=== PATIENT | female | born 1950 | race Caucasian/White ===

== ENCOUNTER → 2019-12-17 12:27 | Outpatient (CLI) | payer MEDICARE, OTHER, SELFPAY ==
[2019-12-17 12:50] LABS: Basophils % 0.4 % (0.1-2.0); Eosinophils # 0.1 K/mm3 (0.0-0.4); Eosinophils % 1.2 % (0.1-12.0); Hematocrit 41.2 % (37.0-47.0); Hemoglobin 13.7 g/dL (12.2-16.2); Lymphocytes # 1.9 K/mm3 (0.7-4.5); Lymphocytes % 24.8 % (10-50); Mean Corpuscular HGB Conc 33.2 g/dL (31.8-35.4); Mean Corpuscular Volume 99.4 fl (81-99); Mean Platelet Volume 8.5 fl (7.4-10.4); Monocytes # 0.4 K/mm3 (0.1-1.0); Monocytes % 5.1 % (1.7-9.3); Neutrophils # 5.3 K/mm3 (1.8-7.8); Neutrophils % 68.5 % (37.0-80.0); Platelet Count 199 K/mm3 (142-424); Red Blood Count 4.15 M/mm3 (4.20-5.40); Red Cell Distribution Width 12.6 % (11.5-17.5); White Blood Count 7.8 K/mm3 (4.8-10.8)
[2019-12-17 12:56] LABS: Alanine Aminotransferase 25 U/L (12-78); Albumin Level 4.8 g/dl (3.5-5.0); Albumin/Globulin Ratio 1.7 (1.1-1.8); Alkaline Phosphatase 60 U/L (38-126); Anion Gap 13.1 mEq/L (5-15); Aspartate Amino Transferase 41 U/L (14-36); Bilirubin,Total 0.7 mg/dl (0.2-1.3); Blood Urea Nitrogen 18 mg/dl (7-17); Calcium 10.1 mg/dl (8.4-10.2); Carbon Dioxide 31 mmol/L (22.0-30.0); Chloride 101 mmol/L (98-107); Chol/HDL Ratio 2.3 (1-3.5); Cholesterol 159 mg/dl (140-200); Estimated Glomerular Filt Rate 71 ml/min (>60); GFR (African American) 86 ML/MIN (>60); Globulin 2.9 g/dL (1.3-3.2); Glucose 115 mg/dl (74-100); HDL Cholesterol 68 mg/dl (40-60); Potassium 4.1 mmoL/L (3.5-5.1); Sodium 141 mmol/L (136-145); Total Protein,Serum 7.7 g/dl (6.3-8.2); Triglycerides 113 mg/dl (30-150); VLDL Cholesterol 23 mg/dL (0-40)
[2019-12-17 13:06] LABS: Direct LDL Cholesterol 79.18 mg/dL (100-129)
[2019-12-17 13:13] LABS: T4 (Thyroxine) 10.3 ug/dl (5.53-11.0)
[2019-12-17 13:26] LABS: Thyroid Stimulating Hormone 1.51 uIU/mL (0.465-4.68)
[2019-12-27 18:47] LABS: 1,25 Dihydroxy Vitamin D 38 pg/mL (.); 1,25-Dihydroxy, Vitamin D-2 11 pg/mL (.); 1,25-Dihydroxy, Vitamin D-3 27 pg/mL (.)
== END ==
PROVIDERS: Visit Provider Nurse Practitioner Family
DX: I10 Essential (primary) hypertension (principal); R53.83 Other fatigue; E11.9 Type 2 diabetes mellitus without complications
CPT/HCPCS: 80053; 80061; 82652; 83036; 84436; 84443; 85025

== ENCOUNTER → 2020-03-04 17:51 | Outpatient (CLI) | payer MEDICARE, OTHER, SELFPAY ==
[2020-03-04 19:33] LABS: Hemoglobin A1C 5.7 % (4.0-6.0)
== END ==
PROVIDERS: Visit Provider Nurse Practitioner Family
DX: R73.09 Other abnormal glucose (principal)
CPT/HCPCS: 83036

== ENCOUNTER → 2020-06-08 14:16 | Outpatient (CLI) | payer MEDICARE, OTHER, SELFPAY ==
[2020-06-08 14:27] LABS: Basophils % 0.5 % (0.1-2.0); Eosinophils # 0.1 K/mm3 (0.0-0.4); Eosinophils % 1.1 % (0.1-12.0); Hematocrit 40.2 % (37.0-47.0); Hemoglobin 12.6 g/dL (12.2-16.2); Lymphocytes # 2.1 K/mm3 (0.7-4.5); Lymphocytes % 32.5 % (10-50); Mean Corpuscular HGB Conc 31.5 g/dL (31.8-35.4); Mean Corpuscular Hemoglobin 30.6 pg (27.0-31.2); Mean Corpuscular Volume 97.3 fl (81-99); Mean Platelet Volume 8.6 fl (7.4-10.4); Monocytes # 0.4 K/mm3 (0.1-1.0); Monocytes % 6.2 % (1.7-9.3); Neutrophils # 3.8 K/mm3 (1.8-7.8); Neutrophils % 59.7 % (37.0-80.0); Platelet Count 182 K/mm3 (142-424); Red Blood Count 4.13 M/mm3 (4.20-5.40); Red Cell Distribution Width 12.8 % (11.5-17.5); White Blood Count 6.4 K/mm3 (4.8-10.8)
[2020-06-08 14:30] LABS: Alanine Aminotransferase 19 U/L (12-78); Albumin Level 4.7 g/dl (3.5-5.0); Albumin/Globulin Ratio 1.7 (1.1-1.8); Alkaline Phosphatase 54 U/L (38-126); Anion Gap 11.3 mEq/L (5-15); Aspartate Amino Transferase 35 U/L (14-36); Bilirubin,Total 0.7 mg/dl (0.2-1.3); Blood Urea Nitrogen 24 mg/dl (7-17); Calcium 10.1 mg/dl (8.4-10.2); Carbon Dioxide 31 mmol/L (22.0-30.0); Chloride 104 mmol/L (98-107); Chol/HDL Ratio 2.5 (1-3.5); Cholesterol 158 mg/dl (140-200); Estimated Glomerular Filt Rate 62 ml/min (>60); GFR (African American) 75 ML/MIN (>60); Globulin 2.8 g/dL (1.3-3.2); Glucose 105 mg/dl (74-100); HDL Cholesterol 64 mg/dl (40-60); Potassium 4.3 mmoL/L (3.5-5.1); Sodium 142 mmol/L (136-145); Total Protein,Serum 7.5 g/dl (6.3-8.2); Triglycerides 103 mg/dl (30-150); VLDL Cholesterol 21 mg/dL (0-40)
[2020-06-08 14:42] LABS: Direct LDL Cholesterol 73.38 mg/dL (100-129)
[2020-06-08 14:47] LABS: T4 (Thyroxine) 11.3 ug/dl (5.53-11.0)
[2020-06-08 14:48] LABS: 25-OH Vitamin D, Total 30.1 ng/mL (30-100)
[2020-06-08 15:01] LABS: Thyroid Stimulating Hormone 1.84 uIU/mL (0.465-4.68)
[2020-06-08 15:40] LABS: Hemoglobin A1C 5.7 % (4.0-6.0)
== END ==
PROVIDERS: Visit Provider Nurse Practitioner Family
DX: R53.83 Other fatigue (principal); I10 Essential (primary) hypertension; R73.03 Prediabetes; E55.9 Vitamin D deficiency, unspecified
CPT/HCPCS: 80053; 80061; 82306; 83036; 84436; 84443; 85025

== ENCOUNTER → 2021-03-01 17:21 | Outpatient (CLI) | payer MEDICARE, OTHER, SELFPAY ==
[2021-03-01 17:38] LABS: Alanine Aminotransferase 19 U/L (12-78); Albumin Level 4.7 g/dl (3.5-5.0); Albumin/Globulin Ratio 1.7 (1.1-1.8); Alkaline Phosphatase 55 U/L (38-126); Anion Gap 15.3 mEq/L (5-15); Aspartate Amino Transferase 33 U/L (14-36); Bilirubin,Total 0.6 mg/dl (0.2-1.3); Blood Urea Nitrogen 19 mg/dl (7-17); Calcium 10.4 mg/dl (8.4-10.2); Carbon Dioxide 28 mmol/L (22.0-30.0); Chloride 103 mmol/L (98-107); Chol/HDL Ratio 3.2 (1-3.5); Cholesterol 179 mg/dl (140-200); Estimated Glomerular Filt Rate 71 ml/min (>60); GFR (African American) 85 ML/MIN (>60); Globulin 2.7 g/dL (1.3-3.2); Glucose 91 mg/dl (74-100); HDL Cholesterol 56 mg/dl (40-60); Potassium 4.3 mmoL/L (3.5-5.1); Sodium 142 mmol/L (136-145); Total Protein,Serum 7.4 g/dl (6.3-8.2); Triglycerides 144 mg/dl (30-150); VLDL Cholesterol 29 mg/dL (0-40)
[2021-03-01 17:50] LABS: Direct LDL Cholesterol 99.37 mg/dL (100-129)
[2021-03-01 17:55] LABS: 25-OH Vitamin D, Total 43.5 ng/mL (30-100)
[2021-03-01 17:56] LABS: T4 (Thyroxine) 10.9 ug/dl (5.53-11.0)
[2021-03-01 18:09] LABS: Thyroid Stimulating Hormone 1.34 uIU/mL (0.465-4.68)
== END ==
PROVIDERS: Visit Provider Nurse Practitioner Family
DX: I10 Essential (primary) hypertension (principal); R73.03 Prediabetes; E55.9 Vitamin D deficiency, unspecified
CPT/HCPCS: 80053; 80061; 82306; 84436; 84443

== ENCOUNTER → 2021-08-28 18:48 | Outpatient (CLI) | payer MEDICARE, OTHER, SELFPAY ==
[2021-08-28 14:30] LABS: Alanine Aminotransferase 23 U/L (12-78); Albumin Level 4.5 g/dl (3.5-5.0); Albumin/Globulin Ratio 1.9 (1.1-1.8); Alkaline Phosphatase 53 U/L (38-126); Anion Gap 13.2 mEq/L (5-15); Aspartate Amino Transferase 33 U/L (14-36); Bilirubin,Total 0.5 mg/dl (0.2-1.3); Blood Urea Nitrogen 18 mg/dl (7-17); Carbon Dioxide 28 mmol/L (22.0-30.0); Chloride 103 mmol/L (98-107); Chol/HDL Ratio 2.8 (1-3.5); Cholesterol 149 mg/dl (140-200); Estimated Glomerular Filt Rate 70 ml/min (>60); GFR (African American) 85 ML/MIN (>60); Globulin 2.4 g/dL (1.3-3.2); Glucose 100 mg/dl (74-100); HDL Cholesterol 53 mg/dl (40-60); Potassium 4.2 mmoL/L (3.5-5.1); Sodium 140 mmol/L (136-145); Total Protein,Serum 6.9 g/dl (6.3-8.2); Triglycerides 156 mg/dl (30-150); VLDL Cholesterol 31 mg/dL (0-40)
[2021-08-28 14:36] LABS: Basophils # 0.1 K/mm3 (0-0.2); Eosinophils # 0.1 K/mm3 (0.0-0.4); Eosinophils % 1.5 % (0.1-12.0); Hematocrit 40.5 % (37.0-47.0); Hemoglobin 13.2 g/dL (12.2-16.2); Lymphocytes # 1.8 K/mm3 (0.7-4.5); Lymphocytes % 27.9 % (10-50); Mean Corpuscular HGB Conc 32.6 g/dL (31.8-35.4); Mean Corpuscular Hemoglobin 32.2 pg (27.0-31.2); Mean Corpuscular Volume 98.7 fl (81-99); Mean Platelet Volume 9.2 fl (7.4-10.4); Monocytes # 0.4 K/mm3 (0.1-1.0); Monocytes % 5.6 % (1.7-9.3); Platelet Count 196 K/mm3 (142-424); Red Blood Count 4.11 M/mm3 (4.20-5.40); Red Cell Distribution Width 12.7 % (11.5-17.5); White Blood Count 6.3 K/mm3 (4.8-10.8)
[2021-08-28 14:42] LABS: Direct LDL Cholesterol 64.44 mg/dL (100-129)
[2021-08-28 14:47] LABS: T4 (Thyroxine) 11.2 ug/dl (5.53-11.0)
[2021-08-28 14:49] LABS: 25-OH Vitamin D, Total 35.7 ng/mL (30-100)
[2021-08-28 15:01] LABS: Thyroid Stimulating Hormone 1.48 uIU/mL (0.465-4.68)
== END ==
PROVIDERS: Visit Provider Nurse Practitioner Family
DX: Z09 Encounter for follow-up examination after completed treatment for conditions other than malignant neoplasm (principal); I10 Essential (primary) hypertension; M25.561 Pain in right knee; M25.562 Pain in left knee
CPT/HCPCS: 80053; 80061; 82306; 84436; 84443; 85025

== ENCOUNTER → 2023-01-01 14:10 | Outpatient (CLI) | payer MEDICARE, OTHER, SELFPAY | PROVIDERS: PCP Student in an Organized Health Care Education/Training Program; Visit Provider Student in an Organized Health Care Education/Training Program | DX: N39.0 Urinary tract infection, site not specified (principal); R35.0 Frequency of micturition | CPT/HCPCS: 87086 ==

== ENCOUNTER → 2023-01-31 01:10 | Outpatient (CLI) | payer MEDICARE, OTHER, SELFPAY ==
[2023-01-31 20:29] LABS: Basophils # 0.1 K/mm3 (0-0.2); Basophils % 0.6 % (0.1-2.0); Eosinophils # 0.1 K/mm3 (0.0-0.4); Eosinophils % 1.5 % (0.1-12.0); Hematocrit 40.1 % (37.0-47.0); Hemoglobin 12.4 g/dL (12.2-16.2); Lymphocytes % 27.4 % (10-50); Mean Corpuscular HGB Conc 30.9 g/dL (31.8-35.4); Mean Corpuscular Hemoglobin 29.5 pg (27.0-31.2); Mean Corpuscular Volume 95.6 fl (81-99); Mean Platelet Volume 9.2 fl (7.4-10.4); Monocytes # 0.5 K/mm3 (0.1-1.0); Monocytes % 6.6 % (1.7-9.3); Neutrophils # 4.7 K/mm3 (1.8-7.8); Neutrophils % 63.9 % (37.0-80.0); Platelet Count 216 K/mm3 (142-424); Red Cell Distribution Width 13.3 % (11.5-17.5); White Blood Count 7.4 K/mm3 (4.8-10.8)
[2023-01-31 20:48] LABS: Alanine Aminotransferase 19 U/L (12-78); Albumin Level 4.1 g/dl (3.5-5.0); Albumin/Globulin Ratio 1.5 (1.1-1.8); Alkaline Phosphatase 61 U/L (38-126); Anion Gap 10.4 mEq/L (5-15); Aspartate Amino Transferase 28 U/L (14-36); Bilirubin,Total 0.4 mg/dl (0.2-1.3); Blood Urea Nitrogen 16 mg/dl (7-17); Calcium 9.1 mg/dl (8.4-10.2); Carbon Dioxide 29 mmol/L (22.0-30.0); Chloride 107 mmol/L (98-107); Cholesterol 146 mg/dl (140-200); Estimated Glomerular Filt Rate 70 ml/min (>60); GFR (African American) 85 ML/MIN (>60); Globulin 2.8 g/dL (1.3-3.2); Glucose 100 mg/dl (74-100); HDL Cholesterol 49 mg/dl (40-60); Potassium 4.4 mmoL/L (3.5-5.1); Sodium 142 mmol/L (136-145); Total Protein,Serum 6.9 g/dl (6.3-8.2); Triglycerides 150 mg/dl (30-150); VLDL Cholesterol 30 mg/dL (0-40)
[2023-01-31 21:09] LABS: 25-OH Vitamin D, Total 32.4 ng/mL (30-100)
[2023-01-31 21:39] LABS: Hemoglobin A1C 5.7 % (4.0-6.0)
== END ==
PROVIDERS: PCP Student in an Organized Health Care Education/Training Program; Visit Provider Student in an Organized Health Care Education/Training Program
DX: R31.9 Hematuria, unspecified (principal); E55.9 Vitamin D deficiency, unspecified; I10 Essential (primary) hypertension; R73.03 Prediabetes
CPT/HCPCS: 80053; 80061; 82306; 83036; 84443; 85025; 87086

== ENCOUNTER → 2023-04-01 23:00 | Outpatient (CLI) | payer MEDICARE, OTHER, SELFPAY | PROVIDERS: PCP Student in an Organized Health Care Education/Training Program; Visit Provider Student in an Organized Health Care Education/Training Program | DX: R05.9 Cough, unspecified (principal) | CPT/HCPCS: 87635 ==

== ENCOUNTER 2023-10-01 13:37 | Outpatient (CLI) | payer MEDICARE, OTHER, SELFPAY ==
[2023-10-01 21:34] LABS: Alanine Aminotransferase 25 U/L (12-78); Albumin Level 4.4 g/dl (3.5-5.0); Albumin/Globulin Ratio 1.5 (1.1-1.8); Alkaline Phosphatase 64 U/L (38-126); Anion Gap 14.3 mEq/L (5-15); Aspartate Amino Transferase 42 U/L (14-36); Bilirubin,Total 0.7 mg/dl (0.2-1.3); Blood Urea Nitrogen 18 mg/dl (7-17); Calcium 9.9 mg/dl (8.4-10.2); Carbon Dioxide 27 mmol/L (22.0-30.0); Chloride 103 mmol/L (98-107); Chol/HDL Ratio 2.6 (1-3.5); Cholesterol 153 mg/dl (140-200); Estimated Glomerular Filt Rate 61 ml/min (>60); GFR (African American) 74 ML/MIN (>60); Globulin 2.9 g/dL (1.3-3.2); Glucose 100 mg/dl (74-100); HDL Cholesterol 60 mg/dl (40-60); Potassium 4.3 mmoL/L (3.5-5.1); Sodium 140 mmol/L (136-145); Total Protein,Serum 7.3 g/dl (6.3-8.2); Triglycerides 105 mg/dl (30-150); VLDL Cholesterol 21 mg/dL (0-40)
[2023-10-01 21:36] LABS: Basophils % 0.7 % (0.1-2.0); Eosinophils # 0.1 K/mm3 (0.0-0.4); Eosinophils % 1.6 % (0.1-12.0); Hematocrit 38.6 % (37.0-47.0); Hemoglobin 12.3 g/dL (12.2-16.2); Lymphocytes # 1.6 K/mm3 (0.7-4.5); Lymphocytes % 28.5 % (10-50); Mean Corpuscular HGB Conc 31.8 g/dL (31.8-35.4); Mean Corpuscular Hemoglobin 30.6 pg (27.0-31.2); Mean Corpuscular Volume 96.3 fl (81-99); Mean Platelet Volume 9.4 fl (7.4-10.4); Monocytes # 0.4 K/mm3 (0.1-1.0); Monocytes % 6.8 % (1.7-9.3); Neutrophils # 3.5 K/mm3 (1.8-7.8); Neutrophils % 62.2 % (37.0-80.0); Platelet Count 229 K/mm3 (142-424); Red Cell Distribution Width 14.7 % (11.5-17.5); White Blood Count 5.7 K/mm3 (4.8-10.8)
[2023-10-01 21:45] LABS: Direct LDL Cholesterol 77.81 mg/dL (100-129)
[2023-10-01 22:05] LABS: Thyroid Stimulating Hormone 1.45 uIU/mL (0.465-4.68)
[2023-10-01 22:13] LABS: Hemoglobin A1C 5.8 % (4.0-6.0)
[2023-10-01 22:41] LABS: Vitamin B12 374 pg/mL (239-931)
[2023-10-01 23:01] LABS: Iron 96 ug/dL (37-170)
[2023-10-01 23:11] LABS: Total Iron Binding Capacity 269 ug/dL (265-497)
[2023-10-01 23:38] LABS: Ferritin 238 ng/ml (11.1-264)
== END 2023-10-01 23:59 | disposition home or self-care (01) ==
LOC: LAB.DROPOF 10-02 14:01
PROVIDERS: PCP Student in an Organized Health Care Education/Training Program; Visit Provider Student in an Organized Health Care Education/Training Program
DX: D64.9 Anemia, unspecified (principal); I10 Essential (primary) hypertension; R73.03 Prediabetes; R53.83 Other fatigue
CPT/HCPCS: 80053; 80061; 82607; 82728; 82746; 83036; 83540; 83550; 84443; 85025

== ENCOUNTER 2025-04-15 12:01 | Outpatient (CLI) | payer MEDICARE, OTHER, SELFPAY ==
--- OUTSIDE RECORDS SUMMARY | 2025-03-31 12:35 | XMS_ITS | Encounter Summary ---
Author Organization [facility] Address [address] [place] [id number] Care Team Providers Care Transitions Manager Name Role Phone Ke Mejia MD Primary Care Provider [phone] Reason for Referral * MRI/CAT/PET Scan (Routine) - Closed Specialty Diagnoses / Procedures Referred By Juan storm Referred To Contact Radiology Diagnoses Malignant neoplasm of upper lobe of left lung Procedures CT Abdomen Pelvis With Contrast Emilee Pedro MD [address] [place] [address] Phone: tel: fax: Referral ID Status Reason Start Date Expiration Date Visits Re quested Visits Authorized Closed 12/09/2024 03/10/2026 1 1 * MRI/CAT/PET Scan (Routine) - Closed Specialty Diagnoses / Procedures Referred By Juan storm Referred To Contact Radiology Diagnoses Malignant neoplasm of upper lobe of left lung Procedures CT Chest With Contrast Emilee Pedro MD [address] [place] [address] Phone: tel: fax: Referral ID Status Reason Start Date Expiration Date Visits Re quested Visits Authorized Closed 12/09/2024 03/10/2026 1 1 Reason for Visit * MRI/CAT/PET Scan (Routine) - Closed Specialty Diagnoses / Procedures Referred By Contdevan t Referred To Contact Radiology Diagnoses Malignant neoplasm of upper lobe of left lung Procedures CT Abdomen Pelvis With Contrast Emilee Pedro MD [address] [address] Phone: tel: fax: Referral ID Status Reason Start Date Expiration Date Visits Re quested Visits Authorized Closed 12/09/2024 03/10/2026 1 1 Encounter Details Date Type Department Care Team (Late st Contact Info) Description 03/31/2025 12:35 PM EST - 03/31/2025 11:59 PM EST Hospital Encounter [facility] AT [address] [phone] Emilee Pedro MD [address] [place] [address] Malignant neoplasm of upper lobe of left lung Discharge Disposition: Home or Self Care Social History Tobacco Use Types Packs/Day Years Used Date Smoking Tobacco: Former Cigarettes 1 40 0 04/29/1970 - 2010 Passive Smoke Exposure: Past Smokeless Tobacco: Never Comments:quit 2010 Alcohol Use Standard Drinks/Week Comments No 0 (1 standard drink = 0.6 oz pur e alcohol) AUDIT-C Answer Date Recorded Q1: How often do you have a drink containing alcohol? Never 07/12/2023 Q2: How many drinks containi ng alcohol do you have on a typical day when you are drinking? Patient does not drink Q3: How often do you have si x or more drinks on one occasion? Never 07/12/2023 PHQ-2 Answer Date Recorded Retired PHQ-9: Brief Depression Severity Measure Score 1 02/25/2023 Abuse Screen Answer Date Recorded Feels Unsafe at Home or Work/School no 07/12/2023 Feels Threatened by Someone no 06/27 Does Anyone Try to Keep You From Having Contact with Others or Doing Things Outside Your Home? no 07/12/2023 Physical Signs of Abuse Present no 07/12/2023 Housing Stability Answer Date Recorded Current Living Arrangements home 06/27 Potentially Unsafe Housing Conditions Not on malcolm e 07/13/2023 Disabilities Answer Date Recorded Difficulty Concentrating, Remembering or Making Decisions no 07/12/2023 Difficulty Managing Errands Independently no 07/12/2023 Education Answer Date Recorded Help with school or training? 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 18 g 11 12/23/2023 aspirin 81 MG tablet Take 1 tablet by mouth Daily. atorvastatin (LIPITOR) 20 MG tablet Take 1 tablet by mouth Every Night. 01/12/2017 formoterol (PERFOROMIST) 20 MCG/2ML nebulizer solutionIndicatio ns:Chronic obstructive pulmonary disease, unspecified COPD type Take 2 mL by nebulization 2 (Two) Times a Day. 120 mL 3 06/30/2024 lisinopril-hydroc hlorothiazide (PRINZIDE,ZESTORE TIC) 10-12.5 MG per tablet Take 1 tablet by mouth Daily. 12/01/2016 miSOPROStol (CYTOTEC) 200 MCG tabletIndications :Cervical stenosis (uterine cervix),Thickened endometrium Insert 1 tablet in the vagina the night before your D&C 1 tablet 10/13/2024 potassium chloride 10 MEQ CR tablet Take 1 tablet by mouth Daily. 06/01/2023 tiotropium bromide-olodatero l (STIOLTO RESPIMAT) 2.5-2.5 MCG/ACT aerosol solution inhalerIndication s:Chronic obstructive pulmonary disease, unspecified COPD type Inhale 2 puffs Daily. 2 each 01/01/2025 vitamin C (ASCORBIC ACID) 250 MG tablet Take 1 tablet by mouth Daily. documented as of this encounter Plan of Treatment Upcoming Encounters Date Type Department Care Team (Late st Contact Info) Description 05/03/2025 2:45 PM EST Appointment [facility] [address] AT [address] [place] [phone] 05/03/2025 3:30 PM EST Pre-Admission Testing [facility] P[facility] T [address] [place] [address] 05/07/2025 11:12 AM EST Hospital Encounter [facility] [address] [place] [address] Omega Jones, DO [address] [place] [address] 05/07/2025 11:12 AM EST - 05/07/2025 12:26 PM EST Surgery [facility] [address] [place] [address] Omega Jones, DO [address] [place] [address] BRONCHOSCOPY NAVIGATION WITH ION ROBOT [21404 (CPT )] 06/02/2025 1:30 PM EST Appointment [facility] [place] [address] [facility] [address] [place] [address] 06/02/2025 2:30 PM EST Appointment [facility] [place] [address] [facility] [place] [address] 06/09/2025 3:15 PM EST Office Visit [facility] & [facility] [address] [facility] [address] [place] [address] Emilee Pedro MD [address] [facility] [address] [place] [address] 06/30/2025 1:00 PM EST Office Visit [facility] PULMONARY & CRITICAL CARE MEDICINE [address] [place] [id number] Omega Jones, [address] [place] [address] Scheduled Procedures Name Priority Associated Diagnoses Date/Ti me BRONCHOSCOPY WITH ION ROBOT Pulmonary nodule 05/07/2025 11:12 AM EST documented as of this encounter Procedures Procedure Name Priority Date/Time Associated Diagnosis Comments CT ABDOMEN PELVIS W CONTRAST Routine 03/31/2025 12:58 PM EST Malignant neoplasm of upper lobe of left lung CT CHEST W CONTRAST Routine 03/31/2025 1 2:58 PM EST Malignant neoplasm of upper lobe of left lung documented in this encounter Results * CT Abdomen Pelvis With Contrast (03/31/2025 12:58 PM EST) Anatomical Region Laterality Modality Abdomen, Pelvis N/A Computed Tomogra phy 04/05/2025 12:3 4 PM EST Impressions 04/05/2025 12:45 PM EST Impression: 1.Interval enlargement of thin-walled cavitary lesion in the left upper lobe. There is a slightly larger soft tissue component inferiorly and just medial to the cavitary lesion. Findings are concerning for recurrent disease. 2.No evidence of metastatic disease within the abdomen or pelvis. Electronically Signed: Samuel Fair MD 04/05/2025 12:45 PM EST Workstation ID: [id number] Narrative 04/05/2025 12:[address] CHEST W CONTRAST DIAGNOSTIC, CT ABDOMEN PELVIS W CONTRAST Date of Exam: 03/31/2025 12:40 PM EST Indication: lung cancer. Comparison: 12/02/2024 Technique: Axial CT images were obtained of the chest, abdomen and pelvis after the uneventful intravenous administration of iodinated contrast. Reconstructed coronal and sagittal images were also obtained. Automated exposure control and iterative construction methods were used. Findings: Central airways are patent. There is interval enlargement of thin-walled cavitary lesion in the left upper lobe which previously measured 1.3 cm in diameter and now measures 1.9 cm. There is slightly larger soft tissue component inferiorly best seen on image #32 measuring 6 mm and just medial to the cavitary lesion. No other pulmonary nodules or masses are identified. No axillary or mediastinal adenopathy. Aorta and pulmonary artery are normal in caliber. The thyroid is normal. Esophagus is normal. No evidence of pulmonary embolism is identified. No aggressive appearing lytic or sclerotic bone lesions are identified. Hepatic steatosis. No suspicious liver lesions are identified. Cholelithiasis. Pancreas is unremarkable. Spleen contains calcifications as well as a small splenule. Bilateral adrenal glands are normal. Bilateral kidneys are normal. The bladder is unremarkable. Uterus is unremarkable. Bilateral adnexa are unremarkable. Colon is unremarkable. There is diverticulosis without evidence of diverticulitis. Small bowel is normal. Appendix is normal. Stomach is normal. No adenopathy is identified. Fat-containing inguinal hernias. No aggressive appearing lytic or sclerotic bone lesions are identified. Procedure Note Samuel Fair MD - 04/05/2025 CT CHEST W CONTRAST DIAGNOSTIC, CT ABDOMEN PELVIS W CONTRAST Date of Exam: 03/31/2025 12:40 PM EST Indication: lung cancer. Comparison: 12/02/2024 Technique: Axial CT images were obtained of the chest, abdomen and pelvisafter the uneventful intravenous administration of iodinated contrast.Reconstructed coronal and sagittal images were also obtained. Automatedexposure control and iterative construction methods were used. Findings: Central airways are patent. There is interval enlargement of thin-walledcavitary lesion in the left upper lobe which previously measured 1.3 cm indiameter and now measures 1.9 cm. There is slightly larger soft tissuecomponent inferiorly best seen on image #32 measuring 6 mm and just medial to the cavitary lesion. No otherpulmonary nodules or masses are identified. No axillary or mediastinal adenopathy. Aorta and pulmonary artery arenormal in caliber. The thyroid is normal. Esophagus is normal. No evidenceof pulmonary embolism is identified. No aggressive appearing lytic or sclerotic bone lesions are identified. Hepatic steatosis. No suspicious liver lesions are identified.Cholelithiasis. Pancreas is unremarkable. Spleen contains calcificationsas well as a small splenule. Bilateral adrenal glands are normal. Bilateral kidneys are normal. Thebladder is unremarkable. Uterus is unremarkable. Bilateral adnexa areunremarkable. Colon is unremarkable. There is diverticulosis without evidence ofdiverticulitis. Small bowel is normal. Appendix is normal. Stomach isnormal. No adenopathy is identified. Fat-containing inguinal hernias. Noaggressive appearing lytic or sclerotic bone lesions are identified. IMPRESSION: Impression: 1.Interval enlargement of thin-walled cavitary lesion in the left upperlobe. There is a slightly larger soft tissue component inferiorly and justmedial to the cavitary lesion. Findings are concerning for recurrentdisease. 2.No evidence of metastatic disease within the abdomen or pelvis. Electronically Signed: Samuel Fair MD 04/05/2025 12:45 PM EST Workstation ID: [id number] Emilee Pedro MD IMG CT ORDERABLES Final Result * CT Chest With Contrast Diagnostic (03/31/2025 12:58 PM EST) Anatomical Region Laterality Modality Chest N/A Computed Tomogra phy 04/05/2025 12:3 4 PM EST Impressions 04/05/2025 12:45 PM EST Impression: 1.Interval enlargement of thin-walled cavitary lesion in the left upper lobe. There is a slightly larger soft tissue component inferiorly and just medial to the cavitary lesion. Findings are concerning for recurrent disease. 2.No evidence of metastatic disease within the abdomen or pelvis. Electronically Signed: Samuel Fair MD 04/05/2025 12:45 PM EST Workstation ID: [id number] Narrative 04/05/2025 12:[address] CHEST W CONTRAST DIAGNOSTIC, CT ABDOMEN PELVIS W CONTRAST Date of Exam: 03/31/2025 12:40 PM EST Indication: lung cancer. Comparison: 12/02/2024 Technique: Axial CT images were obtained of the chest, abdomen and pelvis after the uneventful intravenous administration of iodinated contrast. Reconstructed coronal and sagittal images were also obtained. Automated exposure control and iterative construction methods were used. Findings: Central airways are patent. There is interval enlargement of thin-walled cavitary lesion in the left upper lobe which previously measured 1.3 cm in diameter and now measures 1.9 cm. There is slightly larger soft tissue component inferiorly best seen on image #32 measuring 6 mm and just medial to the cavitary lesion. No other pulmonary nodules or masses are identified. No axillary or mediastinal adenopathy. Aorta and pulmonary artery are normal in caliber. The thyroid is normal. Esophagus is normal. No evidence of pulmonary embolism is identified. No aggressive appearing lytic or sclerotic bone lesions are identified. Hepatic steatosis. No suspicious liver lesions are identified. Cholelithiasis. Pancreas is unremarkable. Spleen contains calcifications as well as a small splenule. Bilateral adrenal glands are normal. Bilateral kidneys are normal. The bladder is unremarkable. Uterus is unremarkable. Bilateral adnexa are unremarkable. Colon is unremarkable. There is diverticulosis without evidence of diverticulitis. Small bowel is normal. Appendix is normal. Stomach is normal. No adenopathy is identified. Fat-containing inguinal hernias. No aggressive appearing lytic or sclerotic bone lesions are identified. Procedure Note Samuel Fair MD - 04/05/2025 CT CHEST W CONTRAST DIAGNOSTIC, CT ABDOMEN PELVIS W CONTRAST Date of Exam: 03/31/2025 12:40 PM EST Indication: lung cancer. Comparison: 12/02/2024 Technique: Axial CT images were obtained of the chest, abdomen and pelvisafter the uneventful intravenous administration of iodinated contrast.Reconstructed coronal and sagittal images were also obtained. Automatedexposure control and iterative construction methods were used. Findings: Central airways are patent. There is interval enlargement of thin-walledcavitary lesion in the left upper lobe which previously measured 1.3 cm indiameter and now measures 1.9 cm. There is slightly larger soft tissuecomponent inferiorly best seen on image #32 measuring 6 mm and just medial to the cavitary lesion. No otherpulmonary nodules or masses are identified. No axillary or mediastinal adenopathy. Aorta and pulmonary artery arenormal in caliber. The thyroid is normal. Esophagus is normal. No evidenceof pulmonary embolism is identified. No aggressive appearing lytic or sclerotic bone lesions are identified. Hepatic steatosis. No suspicious liver lesions are identified.Cholelithiasis. Pancreas is unremarkable. Spleen contains calcificationsas well as a small splenule. Bilateral adrenal glands are normal. Bilateral kidneys are normal. Thebladder is unremarkable. Uterus is unremarkable. Bilateral adnexa areunremarkable. Colon is unremarkable. There is diverticulosis without evidence ofdiverticulitis. Small bowel is normal. Appendix is normal. Stomach isnormal. No adenopathy is identified. Fat-containing inguinal hernias. Noaggressive appearing lytic or sclerotic bone lesions are identified. IMPRESSION: Impression: 1.Interval enlargement of thin-walled cavitary lesion in the left upperlobe. There is a slightly larger soft tissue component inferiorly and justmedial to the cavitary lesion. Findings are concerning for recurrentdisease. 2.No evidence of metastatic disease within the abdomen or pelvis. Electronically Signed: Samuel Fair MD 04/05/2025 12:45 PM EST Workstation ID: [id number] Emilee Pedro MD IMG CT ORDERABLES Final Result documented in this encounter Visit Diagnoses Diagnosis Malignant neoplasm of upper lobe of left lung Pulmonary nodule Other diseases of lung, not elsewhere classified documented in this encounter Administered Medications Inactive Administered Medications - up to 3 most recent administrations Medication Order MAR Action Action Date Dose Rate Site iopamidol (ISOVUE-300) 61 % injection 85 mL 85 mL, Intravenous, Once in Imaging, On Sat03/31/25 at 1259, For 1 dose Given 03/31/2025 12:57 PM EST 85 mL documented in this encounter Care Teams Transitions Manager Relationship Specialty Start Date End Date Ke Mejia MD [address] [place] [address] PCP - General Family Medicine 11/17/24 documented as of this encounter
--- OUTSIDE RECORDS SUMMARY | 2025-04-07 14:00 | XMS_ITS | Encounter Summary ---
Author Organization [facility] Address [address] [place] [id number] Care Team Providers Care Telemarketing Representative Name Role Phone Ke Mejia MD Primary Care Provider [phone]- [phone] Reason for Referral * Consultation (Routine) - Pending Review Specialty Diagnoses / Procedures Referred By Juan storm Referred To Contact Diagnoses Unilateral nasal obstruction alternating between nares Procedures OK OFFICE/OUTPATIENT NEW MODERATE MDM 45 MINUTES Emilee Pedro MD [address] [facility] [address] [place] [address] Phone: tel: fax: [facility] [address] [place] [address] Phone: tel: fax: Referral ID Status Reason Start Date Expiration Date Visits Requested Visits Authorized [id number] Pending Review Specialty Services Required 2026 1 1 * MRI/CAT/PET Scan (Routine) - Authorized Specialty Diagnoses / Procedures Referred By Juan storm Referred To Contact Radiology Diagnoses Malignant neoplasm of upper lobe of left lung Procedures NM PET/CT Skull Base to Mid Thigh Emilee Pedro MD [address] [facility] [address] [place] [address] Phone: tel: fax: Referral ID Status Reason Start Date Expiration Date V isits Requested Visits Authorized [id number] Authorized 04/07/2025 2026 2 2 Encounter Details Date Type Department Care Team (Late st Contact Info) Description 04/07/2025 2:00 PM EST Office Visit [facility] HEMAT[facility]Y & ONCOLOGY [address] [facility] [address] [place] [id number] Emilee Pedro MD [address] [facility] [address] [place] [address] Malignant neoplasm of upper lobe of left lung (Primary Dx); Unilateral nasal obstruction alternating between nares Social History Tobacco Use Types Packs/Day Years [...] or training? Not on file Preferred Language Fijian 07/13/2023 PHQ-2 Answer Date Recorded Patient Health [...] on file documented as of this encounter Last Filed Vital Signs Vital Sign Reading Time Taken Comments Blood Pressure 125/66 04/07/2025 1:15 PM EST Pulse 75 04/07/2025 1:15 PM EST Temperature 36.4 C (97.5 F) 04/07/2025 1:15 PM EST Respiratory Rate 18 04/07/2025 1:15 PM EST Oxygen Saturation 98% 04/07/2025 1:15 PM EST Inhaled Oxygen Concentration - - Weight 72.8 kg (160 lb 8 oz) 04/07/2025 1:15 PM EST Height 160 cm (5' 3 ) 04/07/2025 1:15 PM EST Body Mass Index 28.43 04/07/2025 1:15 PM EST documented in this encounter Patient Instructions * Patient Instructions* Emilee Pedro MD - 04/07/2025 2:00 PM EST Call once you get your Mohs procedure performed so we can get copy of your pathology result. If this shows cancer we will want to see you sooner. documented in this encounter Progress Notes * Emilee Pedro MD - 04/07/2025 2:00 PM EST Images from the original note were not included. Hematology and Oncology [place] Office number [phone] Fax number [phone] Follow up Date: 04/07/25 Patient Name: Marylou Patino : 1950 Referring Physician: Dr. Omega Jones MD Chief Complaint: Left lung cancer Cancer Staging: Cancer Staging Stage IIA (pT2b, pN0, cM0) History of Present Illness: Marylou Patino is a pleasant 74 y.o. 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 The patient is accompanied by her supportive and daughter. She was initially referred to urology for hematuria in the fall 2022. She was evaluated by Dr. Morel and underwent cystoscopy which was reportedly normal. However, a CT of the abdomen pelvis showed mild uterine enlargement with endometrial lining thickening. She was referred to gynecologic oncology and saw Dr. Pearce. Ultimately she underwent a D&C showing no evidence of malignancy. A presurgery x-ray however demonstrated a 4.6 cm cavitary nodule within the left upper lobe. Chest CT with contrast on 05/07/2023 showed a 3.8 cm thick-walled cavitary mass in the apical posterior left upper lobe. There was a 0.4 cm nodule in the right upper lobe. She underwent bronchoscopy with biopsy of the left upper lobe mass on 05/20/2023. 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 Interlobar (station 11 L) lymph node FNA negative for malignant cells. PET/CT 05/31/2023 showed hyper metabolic mass in the left upper lobe with an SUV of 16. Ill-defined small mildly hypermetabolic left hilar lymph nodes with an SUV of 3.5. No distant metastatic disease. MRI of the brain is pending this week. Pulmonary function test from April 2023 showed an FEV1 of 2 L/77% Was treated with a zpack for cough several weeks ago. Cough with blood tinge since biopsy, mild andnot increasing. She had COVID infection the last week of April and symptoms were resolving aroundthe time of her PET/CT. Left upper lobectomy 07/12/2023 showing 4.3 cm squamous cell carcinoma, grade 2- 3. There was no LVI.Margins negative. Lymph node dissection including 16 sampled lymph nodes were negative. No LVI. Interval history: Episodes of night terrors, rolling out of bed. She does not recall these events, her wakes her up. Sees primary next week for this issue No increased cough, no sputum production. Had a skin biopsy with Dr. 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 This is planned but not yet scheduled. Has a nonhealing sore internal right nares additionally Past Medical History: Past Medical History: Diagnosis Date Arthritis COPD (chronic obstructive pulmonary disease) Hypertension Lung cancer Past Surgical History: Past Surgical History: Procedure Laterality Date BRONCHOSCOPY WITH ION ROBOTIC ASSIST N/A 05/20/2023 Procedure: BRONCHOSCOPY NAVIGATION WITH ENDOBRONCHIAL ULTRASOUND AND ION ROBOT; Surgeon: Omega Jones DO; Location: [facility]; Service: Robotics - Pulmonary; Laterality: N/A; EBUS scope removed with balloon intact. CATARACT EXTRACTION Bilateral CYSTOSCOPY BLADDER BIOPSY 2022 Dr. Morel D & C HYSTEROSCOPY MYOSURE 11/03/2024 Endometrial polyp- benign DILATATION AND CURETTAGE 2022 Dr. Apple THORACOSCOPY VIDEO ASSISTED WITH LOBECTOMY Left 07/12/2023 Procedure: BRONCHOSCOPY, THORACOSCOPY VIDEO ASSISTED LEFT UPPER LOBECTOMY WITH DAVINCI ROBOT; Surgeon: Ronald Montalvo MD; Location: [facility]; Service: Robotics - DaVinci; Laterality: Left; TUBAL ABDOMINAL LIGATION Bilateral 1979 Family History: Family History Problem Relation Name Age of Onset Emphysema Father Jr Lung cancer Father Jr Hypertension Mother Chrisine Emphysema Mother Chrisine Cirrhosis Brother Lung cancer Brother Heart disease Sister Kidney disease Sister Ovarian cancer Maternal Grandmother 36 Social History: Social History Socioeconomic History Marital status: Number of children: 3 Tobacco Use Smoking status: Former Current packs/day: 0.00 Average packs/day: 1 pack/day for 40.0 years (40.0 ttl pk-yrs) Types: Cigarettes Start date: 04/29/1970 Quit date: 2011 Years since quittin.9 Passive exposure: Past Smokeless tobacco: Never Tobacco comments: quit 2011 Vaping Use Vaping status: Never Used Substance and Sexual Activity Alcohol use: No Drug use: No Sexual activity: Defer 2 ppd age 16 through 2011. Medications: Current Outpatient Medications: albuterol sulfate HFA 108 (90 Base) MCG/ACT inhaler, Inhale 2 puffs Every 4 (Four) Hours As Needed for Wheezing., Disp: 18 g, Rfl: 11 aspirin 81 MG tablet, Take 1 tablet by mouth Daily., Disp: , Rfl: atorvastatin (LIPITOR) 20 MG tablet, Take 1 tablet by mouth Every Night., Disp: , Rfl: formoterol (PERFOROMIST) 20 MCG/2ML nebulizer solution, Take 2 mL by nebulization 2 (Two) Times a Day., Disp: 120 mL, Rfl: 3 lisinopril-hydrochlorothiazide (PRINZIDE,ZESTORETIC) 10-12.5 MG per tablet, Take 1 tablet by mouth Daily., Disp: , Rfl: miSOPROStol (CYTOTEC) 200 MCG tablet, Insert 1 tablet in the vagina the night before your D&C, Disp: 1 tablet, Rfl: 0 potassium chloride 10 MEQ CR tablet, Take 1 tablet by mouth Daily., Disp: , Rfl: tiotropium bromide-olodaterol (STIOLTO RESPIMAT) 2.5-2.5 MCG/ACT aerosol solution inhaler, Inhale 2puffs Daily., Disp: 2 each, Rfl: 0 vitamin C (ASCORBIC ACID) 250 MG tablet, Take 1 tablet by mouth Daily., Disp: , Rfl: Allergies: No Known Allergies Objective Vital Signs: Vitals: 04/07/25 1315 BP: 125/66 Pulse: 75 Resp: 18 Temp: 97.5 ??F (36.4 ??C) TempSrc: Temporal SpO2: 98% Weight: 72.8 kg (160 lb 8 oz) Height: 160 cm (63 ) PainSc: 0-No pain PainLoc: Generalized Comment: arthritis Body mass index is 28.43 kg/m??. Pain Score 04/07/25 1315 PainSc: 0-No pain PainLoc: Generalized Comment: arthritis ECOG Performance Status: 1 - Symptomatic but completely ambulatory Physical Exam: General: No acute distress. Well appearing HEENT: Normocephalic, atraumatic. Sclera anicteric. Right nose skin biopsy site Neck: supple, no adenopathy. Cardiovascular: regular rate and rhythm. No murmurs. Respiratory: Normal rate. Clear to auscultation bilaterally Abdomen: Soft, nontender, non distended, +BS Lymph: no cervical, supraclavicular or axillary adenopathy Neuro: Alert and oriented x 3. No focal deficits. Ext: Symmetric, no edema Laboratory/Imaging Reviewed: Immunohistochemistry, 1A, Lung: PD-L1 (22C3) Tumor Proportion Score: 80%: High PD-L1 expression 05/20/2023 05/20/202305/21/2023 DIAGNOSIS: A. TBNA, FNA, LEFT UPPER LOBE: Atypical B. BRONCH BRUSH, LEFT UPPER LOBE: Atypical C. LYMPH NODE, FNA, STATION 11L: Negative for malignant cells. PET CT 05/31/23 showed: IMPRESSION: Impression: Hypermetabolic cavitary mass in the left upper lobe compatible with biopsy- proven malignancy. Thereare couple small mildly hypermetabolic left hilar lymph nodes compatible with taylor metastases. A couple small right paratracheal lymph nodes demonstrate near background FDG uptake and appear more nonspecific. No evidence of distant metastatic disease beyond the chest. Procedures Final Diagnosis 1. LYMPH NODE, STATION 5, EXCISION: Fragments of at least 1 anthracotic lymph node negative for metastatic carcinoma. 2. LYMPH NODE, STATION 6, EXCISION: 3 lymph nodes negative for metastatic carcinoma (0/3). 3. LYMPH NODE, STATION 7, EXCISION: 3 lymph nodes negative for metastatic carcinoma (0/3). 4. LYMPH NODE, STATION 9, EXCISION: 2 lymph nodes negative for metastatic carcinoma (0/2). 5. LYMPH NODE, STATION 10, EXCISION: Multiple fragments of at least 1 anthracotic lymph node negative for carcinoma. 6. LUNG, LEFT UPPER LOBE, LOBECTOMY: Moderate to poorly differentiated squamous cell carcinoma, 4.3 cm in maximum dimension, with extensive areas of necrosis and inflammation. Surgical margins negative for carcinoma. 6 lymph nodes negative for metastatic carcinoma (0/6). See tumor synoptic for additional details. LUNG CARCINOMA SPECIMEN TYPE/PROCEDURE: Lobectomy LATERALITY (Left or Right): Left SYNCHRONOUS TUMORS PRESENT: Not identified TUMOR FOCALITY: Unifocal TUMOR SITE: Upper lobe TUMOR SIZE: 4.3 x 3.6 x 2.9 cm pT= 2b pN= 0 Labs from [facility] 10/01/23: WBC 5.7; Hemoglobin 12.3; MCV 96; Plt 229 CMP AST 42 and otherwise normal Iron saturation and B12 normal Ferritin 238 No visits with results within 2 Week(s) from this visit. Latest known visit with results is: Lab on 12/11/2024 Component Date Value Ref Range Status Glucose 12/11/2024 116 (H) 65 - 99 mg/dL Final BUN 12/11/2024 22.8 8.0 - 23.0 mg/dL Final Creatinine 12/11/2024 0.99 0.57 - 1.00 mg/dL Final Sodium 12/11/2024 139 136 - 145 mmol/L Final Potassium 12/11/2024 4.2 3.5 - 5.2 mmol/L Final Chloride 12/11/2024 105 98 - 107 mmol/L Final CO2 12/11/2024 24.2 22.0 - 29.0 mmol/L Final Calcium 12/11/2024 9.5 8.6 - 10.5 mg/dL Final Total Protein 12/11/2024 7.1 6.0 - 8.5 g/dL Final Albumin 12/11/2024 4.4 3.5 - 5.2 g/dL Final ALT (SGPT) 12/11/2024 40 (H) 1 - 33 U/L Final AST (SGOT) 12/11/2024 46 (H) 1 - 32 U/L Final Alkaline Phosphatase 12/11/2024 57 39 - 117 U/L Final Total Bilirubin 12/11/2024 0.5 0.0 - 1.2 mg/dL Final Globulin 12/11/2024 2.7 gm/dL Final Calculated Result A/G Ratio 12/11/2024 1.6 g/dL Final BUN/Creatinine Ratio 12/11/2024 23.0 7.0 - 25.0 Final Anion Gap 12/11/2024 9.8 5.0 - 15.0 mmol/L Final eGFR 12/11/2024 59.2 (L) >60.0 mL/min/1.73 Final WBC 12/11/2024 6.50 3.40 - 10.80 10*3/mm3 Final RBC 12/11/2024 3.89 3.77 - 5.28 10*6/mm3 Final Hemoglobin 12/11/2024 12.1 12.0 - 15.9 g/dL Final Hematocrit 12/11/2024 37.1 34.0 - 46.6 % Final MCV 12/11/2024 95.4 79.0 - 97.0 fL Final MCH 12/11/2024 31.1 26.6 - 33.0 pg Final MCHC 12/11/2024 32.6 31.5 - 35.7 g/dL Final RDW 12/11/2024 12.5 12.3 - 15.4 % Final RDW-SD 12/11/2024 44.6 37.0 - 54.0 fl Final MPV 12/11/2024 9.9 6.0 - 12.0 fL Final Platelets 12/11/2024 154 140 - 450 10*3/mm3 Final Neutrophil % 12/11/2024 60.8 42.7 - 76.0 % Final Lymphocyte % 12/11/2024 26.5 19.6 - 45.3 % Final Monocyte % 12/11/2024 9.4 5.0 - 12.0 % Final Eosinophil % 12/11/2024 2.6 0.3 - 6.2 % Final Basophil % 12/11/2024 0.5 0.0 - 1.5 % Final Immature Grans % 12/11/2024 0.2 0.0 - 0.5 % Final Neutrophils, Absolute 12/11/2024 3.96 1.70 - 7.00 10*3/mm3 Final Lymphocytes, Absolute 12/11/2024 1.72 0.70 - 3.10 10*3/mm3 Final Monocytes, Absolute 12/11/2024 0.61 0.10 - 0.90 10*3/mm3 Final Eosinophils, Absolute 12/11/2024 0.17 0.00 - 0.40 10*3/mm3 Final Basophils, Absolute 12/11/2024 0.03 0.00 - 0.20 10*3/mm3 Final Immature Grans, Absolute 12/11/2024 0.01 0.00 - 0.05 10*3/mm3 Final CT Chest With Contrast Diagnostic Result Date: 04/05/2025 Narrative: CT CHEST W CONTRAST DIAGNOSTIC, CT ABDOMEN PELVIS W CONTRAST Date of Exam: 03/31/2025 12:40 PM EST Indication: lung cancer. Comparison: 12/02/2024 Technique: Axial CT images were obtained of the chest, abdomen and pelvis after the uneventful intravenous administration of iodinated contrast.Reconstructed [...] cavitary lesion. No other pulmonary nodules or massesare identified. No axillary or mediastinal adenopathy. Aorta [...] evidence of diverticulitis. Small bowel is normal. Appe ndix is normal. Stomach is normal. No adenopathy is identified. Fat-containing inguinal hernias. Noaggressive appearing lytic or sclerotic bone lesions are identified. Impression: Impression: 1.Interval enlargement of thin-walled cavitary lesion in the left upper lobe. There is a slightly larger soft tissue component inferiorly and just medial to the cavitary lesion. Findings are concerning for recurrent disease. 2.No evidence of metastatic disease within the abdomen or pelvis. Electronically Signed: Samuel Fair MD 04/05/2025 12:45 PM EST Workstation ID: [id number] CT Abdomen Pelvis With Contrast Result Date: 04/05/2025 Narrative: CT CHEST W CONTRAST DIAGNOSTIC, CT ABDOMEN PELVIS W CONTRAST Date of Exam: 03/31/2025 12:40 PM EST Indication: lung cancer. Comparison: 12/02/2024 Technique: Axial CT images were obtained of the chest, abdomen and pelvis after the uneventful intravenous administration of iodinated contrast.Reconstructed [...] cavitary lesion. No other pulmonary nodules or massesare identified. No axillary or mediastinal adenopathy. Aorta [...] evidence of diverticulitis. Small bowel is normal. Appe ndix is normal. Stomach is normal. No adenopathy is identified. Fat-containing inguinal hernias. Noaggressive appearing lytic or sclerotic bone lesions are identified. Impression: Impression: 1.Interval enlargement of thin-walled cavitary lesion in the left upper lobe. There is a slightly larger soft tissue component inferiorly and just medial to the cavitary lesion. Findings are concerning for recurrent disease. 2.No evidence of metastatic disease within the abdomen or pelvis. Electronically Signed: Samuel Fair MD 04/05/2025 12:45 PM EST Workstation ID: [id number] Assessment / Plan Assessment/Plan: Squamous cell non-small cell carcinoma of the left upper lobe, PD-L1 positive. Enlarging cavitary LLL cyst -I reviewed the patient's final pathology. -She has a stage IIA T2BN0, PDL1 80% squamous cell carcinoma of the ONEL and is now s/p curative intent surgery. -By virtue of Stage IIA NSCLCa with a single high risk feature of poorly differentiated tumor (grade 2-3), and tumor size > 4 cm adjuvant chemotherapy followed by adjuvant immunotherapy was recommended. Her case was reviewed at multidisciplinary tumor board and adjuvant radiation was not recommended. -She declined adjuvant chemotherapy or immunotherapy -She was screened for Alchemist study and did consent to participation. -EGFR/ALK reviewed with patient and negative -I personally reviewed her CT of the chest and compared it to her prior imaging. I compared her current and prior CT. She does have further mild enlargement of a cavitary lesion which is primarily thin walled. However there is now a more solid component inferiorly, albeit relatively small at 6 mm. I messaged her center human resources manager and requested his opinion as to whether this is amenable to biopsy. I otherwise will schedule her for a follow up PET in 8 weeks. Addendum 04/09/25: Updated Marylou after discussion with Dr. Jones. He does feel amenable to biopsy. His office will be reaching out to schedule 3. Fibroid lesion of nose, rule out sarcoma -Reviewed her biopsy results Patient Instructions Call once you get your Mohs procedure performed so we can get copy of your pathology result. If this shows cancer we will want to see you sooner/move up PET. 4. Recurrent unilateral epistaxis/sore -ENT referral Follow Up: May with scans Emilee Pedro MD Hematology and Oncology documented in this encounter Plan of Treatment Upcoming Encounters Date Type Department Care Team (Late st Contact Info) Description 05/03/2025 2:45 PM EST Appointment [facility] CT AT [address] [place] [address] 05/03/2025 3:30 PM EST Pre-Admission Testing [facility] PREADMISSION T [address] [place] [address] 05/07/2025 11:12 AM EST Hospital Encounter [facility] ENDO SUITES [address] [place] [address] Omega Jones, DO [address] [place] [address] 05/07/2025 11:12 AM EST - 05/07/2025 12:26 PM EST Surgery [facility] END[facility] [address] [place] [address] Omega Jones, DO [address] [place] [address] BRONCHOSCOPY NAVIGATION WITH ION ROBOT [[id number] (CPT )] 06/02/2025 1:30 PM EST Appointment [facility] PET [place] [address] [address] 06/02/2025 2:30 PM EST Appointment [facility] [place] [address] [facility] [address] [place] [address] 06/09/2025 3:15 PM EST Office Visit [facility] [address] [facility] [address] [place] [address] Emilee Pedro MD [address] [facility] [address] [place] [address] 06/30/2025 1:00 PM EST Office Visit [facility] [address] [facility] [place] [address] Omega Jones, [address] [place] [address] Scheduled Orders Name Type Priority Associated Diagnoses Orde r Schedule NM PET/CT Skull Base to Mid Thigh Imaging Routine Malignant neoplasm of upper lobe of left lung Expected: 04/10/2025, Expires: 07/06/2026 Scheduled Procedures Name Priority Associated Diagnoses Date/Ti me BRONCHOSCOPY WITH ION ROBOT Pulmonary nodule 05/07/2025 11:12 AM EST Scheduled Referrals Name Type Priority Associated Diagnoses Orde r Schedule Ambulatory Referral to ENT (Otolaryngology) Outpatient Referral Routine Unilateral nasal obstruction alternating between nares Ordered: 04/07/2025 documented as of this encounter Visit Diagnoses Diagnosis Malignant neoplasm of upper lobe of left lung- Primary Unilateral nasal obstruction alternating between nares Pulmonary nodule Other diseases of lung, not elsewhere classified documented in this encounter Care Teams Telemarketing Representative Relationship Specialty Start Date End Date Ke Mejia MD [address] [place] [id number] PCP - General Family Medicine 11/17/24 documented as of this encounter
[2025-04-15 16:11] LABS: Hematocrit 38.5 % (37.0-47.0); Hemoglobin 12.6 g/dL (12.2-16.2); Immature Granulocytes % 0.3 %; Mean Corpuscular HGB Conc 32.7 g/dL (31.8-35.4); Mean Corpuscular Hemoglobin 31.0 pg (27.0-31.2); Mean Corpuscular Volume 94.8 fl (81-99); Nucleated Red Blood Cells % 0 %; Platelet Count 176 K/mm3 (142-424); Red Blood Count 4.06 M/mm3 (4.20-5.40); Red Cell Distribution Width-SD 43.8 fL; White Blood Count 6.4 K/mm3 (4.8-10.8)
[2025-04-15 16:26] LABS: Alanine Aminotransferase 48 U/L (12-78); Albumin Level 4.8 g/dl (3.5-5.0); Albumin/Globulin Ratio 1.7 (1.1-1.8); Alkaline Phosphatase 75 U/L (38-126); Anion Gap 14.6 mEq/L (5-15); Aspartate Amino Transferase 62 U/L (14-36); Bilirubin,Total 1.0 mg/dl (0.2-1.3); Blood Urea Nitrogen 23 mg/dl (7-17); Calcium 9.6 mg/dl (8.4-10.2); Carbon Dioxide 23 mmol/L (22.0-30.0); Chloride 106 mmol/L (98-107); Cholesterol 141 mg/dl (140-200); Creatinine,Serum 1.00 mg/dl (0.52-1.04); Estimated Glomerular Filt Rate 54 ml/min (>60); GFR (African American) 65 ML/MIN (>60); Globulin 2.8 g/dL (1.3-3.2); Glucose 99 mg/dl (74-100); HDL Cholesterol 63 mg/dl (40-60); Potassium 4.6 mmoL/L (3.5-5.1); Sodium 139 mmol/L (136-145); Total Protein,Serum 7.6 g/dl (6.3-8.2); Triglycerides 89 mg/dl (30-150)
[2025-04-15 16:42] LABS: Free T4 (Free Thyroxine) 1.27 ng/dl (0.78-2.19)
[2025-04-15 16:56] LABS: Thyroid Stimulating Hormone 1.50 uIU/mL (0.465-4.68)
--- OUTSIDE RECORDS SUMMARY | 2025-04-16 10:40 | XMS_ITS | Encounter Summary ---
Author Organization [facility] Address [address] [place] [address] Care Team Providers Care Machine Operator Assistant Name Role Phone Ke Mejia MD Primary Care Provider +1- [phone] Encounter Details Date Type Department Care Team (Late st Contact Info) Description 04/13/2025 Prep for Surgery [facility] ORDERS ONLY [address] [place] [address] Omega Jones, DO [address] [place] [address] LLL pulmonary nodule (Primary Dx) Social History Tobacco Use Types Packs/Day Years [...] or training? Not on file Preferred Language Uzbek 07/13/2023 PHQ-2 Answer Date Recorded Patient Health [...] on file documented as of this encounter Plan of Treatment Upcoming Encounters Date Type Department Care Team (Late st Contact Info) Description 05/03/2025 2:45 PM EST Appointment [facility] AT [address] [place] [address] 05/03/2025 3:30 PM EST Pre-Admission Testing [facility] PREADMISSION T [address] [place] [address] 05/07/2025 11:12 AM EST Hospital Encounter [facility] END[facility] [address] [place] [address] Omega Jones, DO [address] [place] [address] 05/07/2025 11:12 AM EST - 05/07/2025 12:26 PM EST Surgery [facility] END[facility] [address] [place] [address] Omega Jones, DO [address] [place] [address] BRONCHOSCOPY NAVIGATION WITH ION ROBOT [[id number] (CPT )] 06/02/2025 1:30 PM EST Appointment [facility] [place] [address] [facility] [address] [place] [address] 06/02/2025 2:30 PM EST Appointment [facility] [place] [address] [facility] [address] [place] [address] 06/09/2025 3:15 PM EST Office Visit [facility] HEMATOLOGY & ONCOLOGY [address] [facility] [address] [place] [address] Emilee Pedro MD [address] [facility] [address] [place] [address] 06/30/2025 1:00 PM EST Office Visit [facility] PULMONARY & CRITICAL CARE MEDICINE [address] [place] [address] Omega Jones, [address] [place] [address] Scheduled Orders Name Type Priority Associated Diagnoses Orde r Schedule Comprehensive Metabolic Panel Lab Routine LLL pulmonary nodule Expected: 04/18/2025 (Approximate), Expires: 04/13/2026 CBC and Differential Lab Panel Routine LLL pulmonary nodule Expected: 04/18/2025 (Approximate), Expires: 04/13/2026 Protime-INR Lab Routine LLL pulmonary nodule Expected: 04/18/2025 (Approximate), Expires: 04/13/2026 APTT Lab Routine LLL pulmonary nodule Expected: 04/18/2025 (Approximate), Expires: 04/13/2026 ECG 12 Lead ECG Routine LLL pulmonary nodule Expected: 04/18/2025, Expires: 04/13/2026 Scheduled Procedures Name Priority Associated Diagnoses Date/Ti me BRONCHOSCOPY WITH ION ROBOT Pulmonary nodule 05/07/2025 11:12 AM EST documented as of this encounter Visit Diagnoses Diagnosis LLL pulmonary nodule- Primary Other diseases of lung, not elsewhere classified LLL pulmonary nodule- Primary Other diseases of lung, not elsewhere classified Pulmonary nodule Other diseases of lung, not elsewhere classified documented in this encounter Care Teams Machine Operator Assistant Relationship Specialty Start Date End Date Ke Mejia MD [address] [place] [address] PCP - General Family Medicine 11/17/24 documented as of this encounter
--- OUTSIDE RECORDS SUMMARY | 2025-04-16 10:40 | XMS_ITS | Data Portability ---
Author Organization [facility] Address [address] [place] [address] Care Team Providers Care Traveling Sales Representative Name Role Phone RENETTA LARSEN Primary Care Provider [phone] Assessment No assessment recorded. Plan of Treatment Reminders Order Date Submit Date Provider Last Modified By Organization Details Last Modified Time Details Appointments NEW PATIENT 2025 10:20A M INDY PATTEN III, MD Not available Not available Not available RECHECK 2025 11:00A M BALDO CAMPBELL PA-C Not available Not available Not available Lab urinalysi s panel, auto [email or web address] [place] [address] Extended Services With [facility], [address], [address], [place], [address], 05/18/2024 15:11:29 urinalysi s panel, auto 2023 024 [facility], [address], [address], [place], [address], 05/19/2023 19:11:58 urinalysi s panel, auto 2022 023 [email or web address] Extended Services With [facility], [address], [address], [place], [address], 02/04/2023 10:15:06 Referral None recorded. Procedures None recorded. Surgeries None recorded. Imaging CT, abdomen + pelvis, w/wo contrast - CT ABD/PEL W/WO CONTRAST PLEASE CALL MARYLOU PARRA AT 2022 023 [email or web address] [facility] (Centralized Scheduling), [address], [place], [address], 02/21/2023 16:51:54 Medication Orders None recorded. Patient TargetsNo targets recorded. Patient Instructions Encounter Date Encounter Id Patient Instructions Last Modified By Organization Details Last Modified Time 02/04/2023 [id number] See notes above and in HPI will arrange for ct urogram and cystoscopy local, needs appt to review CT urogram results if not reviewed with patient during cystoscopy Return sooner if needed Pt understands and agrees with care plan. No further questions or concerns at this time [email or web address] Not available 02/04/2023 15:11:00 04/08/[id number]. Follow up if lesion does not resolve with LN2. [email or web address] Not available 04/08/2023 11:30:42 05/18/2024 [id number] Follow-up in 1 year for recheck Return sooner if needed notify us if any axel hematuria Pt understands and agrees with care plan. No further questions or concerns at this time [email or web address] Not available 05/18/2024 15:11:57 Reason for Referral None Reported. Results Created Date Observation Date Name Description Value Unit Range Abnormal Flag Note LastModifiedBy Organization Detail LastModifiedTime 02/05/2002/04/2023 urina lysis panel , auto Unknown Analyte Clean Catch Not Available [facility] [address], [place], [address], 02/04/2023 09:57:32 02/05/2002/04/2023 urina lysis panel , auto Unknown Analyte Yellow Not Available [facility], [facility] [address], [place], [address], 02/04/2023 09:57:32 02/05/2002/04/2023 urina lysis panel , auto Unknown Analyte Clear Not Available [facility], [facility] With [place] [address], [place], [address], 02/04/2023 09:57:32 02/05/2002/04/2023 urina lysis panel , auto Unknown Analyte 1.010 Not Available [facility] Extended Services With [place] [address], [place], [address], 02/04/2023 09:57:32 02/05/2002/04/2023 urina lysis panel , auto Unknown Analyte 1.003- 1.035 Not Available [facility] Extended Services With [address], [place], [address], 02/04/2023 09:57:32 02/05/2002/04/2023 urina lysis panel , auto Unknown Analyte 6.0 Not Available [facility] Extended Services With [place] [address], [place], [address], 02/04/2023 09:57:32 02/05/2002/04/2023 urina lysis panel , auto Unknown Analyte 5.0-8. 0 Not Available [facility] [place] [address], [place], [address], 02/04/2023 09:57:32 02/05/2002/04/2023 urina lysis panel , auto Unknown Analyte Negati ve Not Available [facility] With [address], [place], [address], 02/04/2023 09:57:32 02/05/2002/04/2023 urina lysis panel , auto Unknown Analyte Negati ve Not Available [facility] [address], [place], [address], 02/04/2023 09:57:32 02/05/2002/04/2023 urina lysis panel , auto Unknown Analyte Negati ve Not Available [facility] Extended Services With [facility] [address], [place], [address], 02/04/2023 09:57:32 02/05/2002/04/2023 urina lysis panel , auto Unknown Analyte Negati ve Not Available [facility] Extended Services With [facility] [address], [place], [address], 02/04/2023 09:57:32 02/05/2002/04/2023 urina lysis panel , auto Unknown Analyte Negati ve Not Available [facility] Extended Services With [facility] [address], [place], [address], 02/04/2023 09:57:32 02/05/2002/04/2023 urina lysis panel , auto Unknown Analyte Negati ve Not Available [facility] Extended Services With [facility] [address], [place], [address], 02/04/2023 09:57:32 02/05/2002/04/2023 urina lysis panel , auto Unknown Analyte Normal Not Available [facility] Extended Services With [facility] [address], [place], [address], 02/04/2023 09:57:32 02/05/2002/04/2023 urina lysis panel , auto Unknown Analyte Normal Not Available [facility], [facility] [place] [facility] [address], [place], [address], 02/04/2023 09:57:32 02/05/2002/04/2023 urina lysis panel , auto Unknown Analyte Negati ve Not Available [facility] [place] [address], [place], [address], 02/04/2023 09:57:32 02/05/2002/04/2023 urina lysis panel , auto Unknown Analyte Negati ve Not Available [facility] [address], [place], [address], 02/04/2023 09:57:32 02/05/2002/04/2023 urina lysis panel , auto Unknown Analyte Normal Not Available [facility] Extended Services With [place] [address], [place], [address], 02/04/2023 09:57:32 02/05/2002/04/2023 urina lysis panel , auto Unknown Analyte Normal 1 mg/dl Not Available [facility] [place] [address], [place], [address], 02/04/2023 09:57:32 02/05/2002/04/2023 urina lysis panel , auto Unknown Analyte Negati ve Not Available [facility] [place] [address], [place], [address], 02/04/2023 09:57:32 02/05/2002/04/2023 urina lysis panel , auto Unknown Analyte Negati ve Not Available [facility] [address], [place], [address], 02/04/2023 09:57:32 02/05/2002/04/2023 urina lysis panel , auto Unknown Analyte Negati ve Not Available [facility] [address], [place], [address], 02/04/2023 09:57:32 02/05/2002/04/2023 urina lysis panel , auto Unknown Analyte Negati ve Not Available [facility] [address], [place], [address], 02/04/2023 09:57:32 02/09/2002/08/2023 urina lysis panel , auto Unknown Analyte Clean Catch Not Available [facility] Surgery Schedule [address] [place], [address], 02/08/2023 12:20:54 02/09/2002/08/2023 urina lysis panel , auto Unknown Analyte Yellow Not Available [facility] Surgery Schedule [address] [place], [address], 02/08/2023 12:20:54 02/09/2002/08/2023 urina lysis panel , auto Unknown Analyte Clear Not Available [facility] Surgery Schedule [address] [place], [address], 02/08/2023 12:20:54 02/09/2002/08/2023 urina lysis panel , auto Unknown Analyte 1.010 Not Available [facility] Surgery Schedule [address] [place], [address], 02/08/2023 12:20:54 02/09/2002/08/2023 urina lysis panel , auto Unknown Analyte 1.003- 1.035 Not Available [facility] Surgery Schedule [address] [place] [address], [address], 02/08/2023 12:20:54 02/09/2002/08/2023 urina lysis panel , auto Unknown Analyte 6.0 Not Available [facility] Surgery Schedule [address] [place] [address], [address], 02/08/2023 12:20:54 02/09/2002/08/2023 urina lysis panel , auto Unknown Analyte 5.0-8. 0 Not Available [facility] Surgery Schedule [address] [place] [address], [address], 02/08/2023 12:20:54 02/09/2002/08/2023 urina lysis panel , auto Unknown Analyte Negati ve Not Available [facility] Surgery Schedule [address] [place] [address], [address], 02/08/2023 12:20:54 02/09/2002/08/2023 urina lysis panel , auto Unknown Analyte Negati ve Not Available [facility] Surgery Schedule [address] [place] [address], [address], 02/08/2023 12:20:54 02/09/2002/08/2023 urina lysis panel , auto Unknown Analyte Negati ve Not Available [facility] Surgery Schedule [address] [place] [address], [address], 02/08/2023 12:20:54 02/09/2002/08/2023 urina lysis panel , auto Unknown Analyte Negati ve Not Available [facility] Surgery Schedule [address] [place] [address], [address], 02/08/2023 12:20:54 02/09/2002/08/2023 urina lysis panel , auto Unknown Analyte Negati ve Not Available [facility] Surgery Schedule [address] [place], [address], 02/08/2023 12:20:54 02/09/2002/08/2023 urina lysis panel , auto Unknown Analyte Negati ve Not Available [facility] Surgery Schedule [address] [place], [address], 02/08/2023 12:20:54 02/09/2002/08/2023 urina lysis panel , auto Unknown Analyte Normal Not Available [facility] Surgery Schedule [address] [place], [address], 02/08/2023 12:20:54 02/09/2002/08/2023 urina lysis panel , auto Unknown Analyte Normal Not Available [facility] Surgery Schedule [address] [place], [address], 02/08/2023 12:20:54 02/09/2002/08/2023 urina lysis panel , auto Unknown Analyte Negati ve Not Available [facility] Surgery Schedule [address] [place], [address], 02/08/2023 12:20:54 02/09/2002/08/2023 urina lysis panel , auto Unknown Analyte Negati ve Not Available [facility] Surgery Schedule [address] [place], [address], 02/08/2023 12:20:54 02/09/2002/08/2023 urina lysis panel , auto Unknown Analyte Normal Not Available [facility] Surgery Schedule [address] [place], [address], 02/08/2023 12:20:54 02/09/2002/08/2023 urina lysis panel , auto Unknown Analyte Normal 1 mg/dl Not Available [facility] Surgery Schedule [address] [place], [address], 02/08/2023 12:20:54 02/09/20 23 02/08/2023 urina lysis panel , auto Unknown Analyte Negati ve Not Available [facility] Surgery Schedule [address] [place], [address], 02/08/2023 12:20:54 02/09/20 23 02/08/2023 urina lysis panel , auto Unknown Analyte Negati ve Not Available [facility] Surgery Schedule [address] [place], [address], 02/08/2023 12:20:54 02/09/20 23 02/08/2023 urina lysis panel , auto Unknown Analyte Negati ve Not Available [facility] Surgery Schedule [address] [place], [address], 02/08/2023 12:20:54 02/09/20 23 02/08/2023 urina lysis panel , auto Unknown Analyte Negati ve Not Available [facility] Surgery Schedule [address] [place], [address], 02/08/2023 12:20:54 05/13/19 24 05/13/2023 urina lysis panel , auto Unknown Analyte Clean Catch Not Available [facility] With [address], [address], 05/13/2023 09:08:03 05/13/19 24 05/13/2023 urina lysis panel , auto Unknown Analyte Yellow Not Available [facility] [address] [place] [address] Rd [address], [address], 05/13/2023 09:08:03 05/13/19 24 05/13/2023 urina lysis panel , auto Unknown Analyte Clear Not Available [facility] [address] [place] [address] [address], [address], 05/13/2023 09:08:03 01/15/20 24 05/13/2023 urina lysis panel , auto Unknown Analyte 1.005 Not Available [facility] [address] [place] [address] Rd [address], [place], [address], 05/13/2023 09:08:03 05/13/19 24 05/13/2023 urina lysis panel , auto Unknown Analyte 1.003- 1.035 Not Available [facility] [address] [place] [address] Rd [address], [place], [address], 05/13/2023 09:08:03 05/13/19 24 05/13/2023 urina lysis panel , auto Unknown Analyte 5.0 Not Available [facility] With [address], [place], [address], 05/13/2023 09:08:03 05/13/19 24 05/13/2023 urina lysis panel , auto Unknown Analyte 5.0-8. 0 Not Available [facility] [address] [place] [address] Rd [address], [place], [address], 05/13/2023 09:08:03 05/13/19 24 05/13/2023 urina lysis panel , auto Unknown Analyte Negati ve Not Available [facility] [address] [place] [address] Rd [address], [place], [address], 05/13/2023 09:08:03 05/13/19 24 05/13/2023 urina lysis panel , auto Unknown Analyte Negati ve Not Available [facility] [address] [place] [address] Rd [address], [place], [address], 05/13/2023 09:08:03 01/15/20 24 05/13/2023 urina lysis panel , auto Unknown Analyte Negati ve Not Available [facility] [address] [place] [address] [address], [place], [address], 05/13/2023 09:08:03 05/13/19 24 05/13/2023 urina lysis panel , auto Unknown Analyte Negati ve Not Available [facility] [address] [place] [address] [address], [place], [address], 05/13/2023 09:08:03 05/13/19 24 05/13/2023 urina lysis panel , auto Unknown Analyte Negati ve Not Available [facility] With [address], [place], [address], 05/13/2023 09:08:03 05/13/19 24 05/13/2023 urina lysis panel , auto Unknown Analyte Negati ve Not Available [facility] [address] [place] [address] [address], [place], [address], 05/13/2023 09:08:03 05/13/19 24 05/13/2023 urina lysis panel , auto Unknown Analyte Normal Not Available [facility] [address] [place] [address] [address], [place], [address], 05/13/2023 09:08:03 05/13/19 24 05/13/2023 urina lysis panel , auto Unknown Analyte Normal Not Available [facility] [address] [place] [address] Rd [address], [place], [address], 05/13/2023 09:08:03 05/13/19 24 05/13/2023 urina lysis panel , auto Unknown Analyte Negati ve Not Available [facility] With [address], [place], [address], 05/13/2023 09:08:03 05/13/19 24 05/13/2023 urina lysis panel , auto Unknown Analyte Negati ve Not Available [facility] With [address], [place], [address], 05/13/2023 09:08:03 05/13/1905/13/2023 urina lysis panel , auto Unknown Analyte Normal Not Available [facility] With [address], [place], [address], 05/13/2023 09:08:03 05/13/19 24 05/13/2023 urina lysis panel , auto Unknown Analyte Normal 1 mg/dl Not Available [facility] With [address], [place], [address], 05/13/2023 09:08:03 05/13/19 24 05/13/2023 urina lysis panel , auto Unknown Analyte Negati ve Not Available [facility] With [address], [place], [address], 05/13/2023 09:08:03 05/13/19 24 05/13/2023 urina lysis panel , auto Unknown Analyte Negati ve Not Available [facility] [address] [place] [address] Rd [address], [place], [address], 05/13/2023 09:08:03 05/13/19 24 05/13/2023 urina lysis panel , auto Unknown Analyte Negati ve Not Available [facility] [address], [place], [address], 05/13/2023 09:08:03 05/13/19 24 05/13/2023 urina lysis panel , auto Unknown Analyte Negati ve Not Available [facility] [address], [place], [address], 05/13/2023 09:08:03 05/18/19 25 05/18/2024 urina lysis panel , auto Unknown Analyte Clean Catch Not Available [facility] Extended Services With [facility] [address], [place], [address], 05/18/2024 13:13:29 05/18/19 25 05/18/2024 urina lysis panel , auto Unknown Analyte Yellow Not Available [facility] Extended Services With [facility] [address], [place], [address], 05/18/2024 13:13:29 05/18/19 25 05/18/2024 urina lysis panel , auto Unknown Analyte Clear Not Available [facility] Extended Services With [facility] [address], [place], [address], 05/18/2024 13:13:29 05/18/19 25 05/18/2024 urina lysis panel , auto Unknown Analyte 1.020 Not Available [facility] Extended Services With [facility] [address], [place], [address], 05/18/2024 13:13:29 05/18/19 25 05/18/2024 urina lysis panel , auto Unknown Analyte 1.003- 1.035 Not Available [facility] With [place] [address], [place], [address], 05/18/2024 13:13:29 05/18/19 25 05/18/2024 urina lysis panel , auto Unknown Analyte 5.0 Not Available [facility] Extended Services With [place] [address], [place], [address], 05/18/2024 13:13:29 05/18/19 25 05/18/2024 urina lysis panel , auto Unknown Analyte 5.0-8. 0 Not Available [facility] With [place] [address], [place], [address], 05/18/2024 13:13:29 05/18/19 25 05/18/2024 urina lysis panel , auto Unknown Analyte 75 Joseph/ul (+) Not Available [facility] With [address], [place], [address], 05/18/2024 13:13:29 05/18/19 25 05/18/2024 urina lysis panel , auto Unknown Analyte Negati ve Not Available [facility] With [place] [address], [place], [address], 05/18/2024 13:13:29 05/18/19 25 05/18/2024 urina lysis panel , auto Unknown Analyte Negati ve Not Available [facility] [address], [place], [address], 05/18/2024 13:13:29 05/18/19 25 05/18/2024 urina lysis panel , auto Unknown Analyte Negati ve Not Available [facility] [place] [facility] With [place] [address], [place], [address], 05/18/2024 13:13:29 05/18/19 25 05/18/2024 urina lysis panel , auto Unknown Analyte 30 mg/dl (+) Not Available [facility] Extended Services With [place] [address], [place], [address], 05/18/2024 13:13:29 05/18/19 25 05/18/2024 urina lysis panel , auto Unknown Analyte Negati ve Not Available [facility] Extended Services With [place] [address], [place], [address], 05/18/2024 13:13:29 05/18/19 25 05/18/2024 urina lysis panel , auto Unknown Analyte Normal Not Available [facility] Extended Services With [place] [address], [place], [address], 05/18/2024 13:13:29 05/18/19 25 05/18/2024 urina lysis panel , auto Unknown Analyte Normal Not Available [facility] Extended Services With [place] [address], [place], [address], 05/18/2024 13:13:29 05/18/19 25 05/18/2024 urina lysis panel , auto Unknown Analyte Negati ve Not Available [facility] Extended Services With [place] [address], [place], [address], 05/18/2024 13:13:29 05/18/19 25 05/18/2024 urina lysis panel , auto Unknown Analyte Negati ve Not Available [facility] With [place] [address], [place], [address], 05/18/2024 13:13:29 05/18/19 25 05/18/2024 urina lysis panel , auto Unknown Analyte Normal Not Available [facility] Extended Services With [place] [address], [place], [address], 05/18/2024 13:13:29 05/18/19 25 05/18/2024 urina lysis panel , auto Unknown Analyte Normal 1 mg/dl Not Available [facility] Extended Services With [place] [address], [place], [address], 05/18/2024 13:13:29 05/18/19 25 05/18/2024 urina lysis panel , auto Unknown Analyte Negati ve Not Available [facility] Extended Services With [place] [address], [place], [address], 05/18/2024 13:13:29 05/18/19 25 05/18/2024 urina lysis panel , auto Unknown Analyte Negati ve Not Available [facility] Extended Services With [place] [address], [place], [address], 05/18/2024 13:13:29 05/18/19 25 05/18/2024 urina lysis panel , auto Unknown Analyte Negati ve Not Available [facility] [address], [place], [address], 05/18/2024 13:13:29 05/18/19 25 05/18/2024 urina lysis panel , auto Unknown Analyte Negati ve Not Available [facility] Extended Services With [facility] [address] [facility] [address], [place], [address], 05/18/2024 13:13:29 02/09/20 23 02/08/2023 CT, abdom en + pelvi s, w/wo contr ast [facility] [address] [facility] [place] [address] Patien t Name: MARYLOU PARRA Patien t : [id number] Patien t Orderi ng Provid er: GOLD MARTINEZ EXAM DATE: 2022 EXAM: CT ABD/PE LVIS W/WO CONTRA ST CLINIC AL INFORM ATION: Micros copic hematu kamini. TECHNI QUE: A baseli ne serum creati nine with eGFR was obtain ed prior to inject ion of contra st medium due to the patien ts risk factor s for BHARTI. Calcul ated eGFR at time of exam was GFR [address] images of the abdome n were obtain ed before and in the combin ed nephro graphi c and excret ory phases after a split bolus inject ion of 100 mL Omnipa que 350 (1 x 100 mL bottle of [facility] 25827- 1414-9 1). None was wasted and discar ded. Bowel was marked with water. COMPAR BURKE: None. FINDIN GS ON CT ABDOME N: LOWER THORAX : Lung bases are clear. Verde ry artery calcif icatio ns are seen. URINAR Y TRACT: Both kidney s are normal in locati on, size, shape, outlin e and parenc hymal thickn ess. No stones or calcif icatio ns are seen within the kidney s ureter s or urinar y bladde r. Nephro graphi c phase shows normal parenc hymal enhanc ement bilate rally withou t delay. No focal abnorm ality. Excret ory phase shows adequa te opacif icatio n of collec ting system s and ureter s withou t dilata tion or fillin g defect . Urinar y bladde r is normal in outlin e and wall thickn ess withou t fillin g defect or mass. OTHER UPPER ABDOMI NAL ORGANS : Spleen shows multip le calcif ied granul omata. Liver, gallbl adder, pancre as, and adrena ls are normal . BOWEL AND MESENT ALHAJI: Stomac h, small bowel and colon are normal . No mesent gertrudis lympha denopa thy or perito dc free fluid. RETROP ERITON EUM: Aorta shows athero sclero tic calcif icatio ns with normal aortic calibe r. IVC and branch es are patent and normal . No retrop eriton eal lympha denopa thy. BODY WALL AND MUSCUL OSKELE CARLEEN STRUCT URES: Degene rative change s of the lumbar spine are noted. Anteri or abdomi nal wall is normal . FINDIN GS ON CT PELVIS : PELVIC CAVITY : Urinar y bladde r and rectos igmoid are normal . Uterus is mildly enlarg ed. Ovarie s are not visual ized. The endome trium is thicke moses and shows hetero geneou s enhanc ement. No pelvic or inguin al lympha denopa thy, mass or fluid. MUSCUL OSKELE CARLEEN STRUCT URES: Normal . COMBIN ED IMPRES FREDDIE: 1. No CT eviden ce of urinar y tract stone or neopla sm. 2. Thicke moses endome trial stripe with hetero geneou s enhanc ement, highly sugges tive of endome trial malign april. GROUP ACTIVITIES AIDE referr al is recomm ended. Interp reted By: Sraa Li MD Electr onical ly Signed By: Sara Li MD on 2022 5:54 PM [email or web address] [facility] Radiology [address], [address], 02/13/2023 11:26:35 Result Notes Documentation Provider Name and Address Organization Details Recorded Time Ct, Abdomen + Pelvis, W/wo Contrast : [address] [address] Patient Name: MARYLOU PARRA Patient : [id number] Patient Ordering Provider: GOLD PARKINSON JR EXAM DATE: 02/08/2023 EXAM: CT ABD/PELVIS W/WO CONTRAST CLINICAL INFORMATION: Microscopic hematuria. TECHNIQUE: A baseline serum creatinine with eGFR was obtained prior to injection of contrast medium due to the patients risk factors for BHARTI. Calculated eGFR at time of exam was GFR [address] images of the abdomen were obtained before and in the combined nephrographic and excretory phases after a split bolus injection of 100 mL Omnipaque 350 (1 x 100 mL bottle of [facility] [id number]). None was wasted and discarded. Bowel was marked with water. COMPARISON: None. FINDINGS ON CT ABDOMEN: LOWER THORAX: Lung bases are clear. Coronary artery calcifications are seen. URINARY TRACT: Both kidneys are normal in location, size, shape, outline and parenchymal thickness. No stones or calcifications are seen within the kidneys ureters or urinary bladder. Nephrographic phase shows normal parenchymal enhancement bilaterally without delay. No focal abnormality. Excretory phase shows adequate opacification of collecting systems and ureters without dilatation or filling defect. Urinary bladder is normal in outline and wall thickness without filling defect or mass. OTHER UPPER ABDOMINAL ORGANS: Spleen shows multiple calcified granulomata. Liver, gallbladder, pancreas, and adrenals are normal. BOWEL AND MESENTERY: Stomach, small bowel and colon are normal. No mesenteric lymphadenopathy or peritoneal free fluid. RETROPERITONEUM: Aorta shows atherosclerotic calcifications with normal aortic caliber. IVC and branches are patent and normal. No retroperitoneal lymphadenopathy. BODY WALL AND MUSCULOSKELETAL STRUCTURES: Degenerative changes of the lumbar spine are noted. Anterior abdominal wall is normal. FINDINGS ON CT PELVIS: PELVIC CAVITY: Urinary bladder and rectosigmoid are normal. Uterus is mildly enlarged. Ovaries are not visualized. The endometrium is thickened and shows heterogeneous enhancement. No pelvic or inguinal lymphadenopathy, mass or fluid. MUSCULOSKELETAL STRUCTURES: Normal. COMBINED IMPRESSION: 1. No CT evidence of urinary tract stone or neoplasm. 2. Thickened endometrial stripe with heterogeneous enhancement, highly suggestive of endometrial malignancy. GROUP ACTIVITIES AIDE referral is recommended. Interpreted By: Theo Li MD [facility]13[facility] 11:26:35 Problems Name Problem SNOMED Code Status Onset Date Resolution Date Notes Provider Name and Address Organization Details Recorded Time Microscopic hematuria 936230207 Active 2022 GOLD PARKINSON JR, MD [address] [place] [address], [phone] , [facility] 3 13:33:40 Problem Notes None recorded. Procedures Surgical History Date Name Laterality Status Provider Name and Address Organization Details Recorded Time 4 operation on lung completed Ravi Cisset [facility] 05/18/2024 13:12:51 3 DAK - Cryo AK completed Jeff Price-Christi n [facility] 04/08/2023 11:29:46 3 Cystoscopy - [place] [address] [place] [address], [phone], [facility] 02/08/2023 13:33:25 Tubal Ligation completed Cassie Salcedo [facility] 02/04/2023 09:49:31 Imaging Results None recorded. Procedure Notes None recorded. Medical Equipment None Reported. Allergies No known drug allergies Medications Name Sig Start Date Stop Date Status Note LastModified by Organization Details LastModified Time potassium chloride active Not Available Not Available Not Available atorvasta tin active Not Available Not Available Not Available aspirin active Not Available Not Avail able Not Available calcium active Not Available Not Avail able Not Available lisinopri l active Not Available Not Available Not Available MoviPrep 100 gram-7.5 gram-2.69 1 gram oral powder packet As Directed 02/04 completed Frequenc y: as direct.; Medicati on Descript ion: polyethy percy glycol 3350 with electrol ytes; Dosage:a s directed ; Route:or al; refills: 0; Quantity :1 powder for reconsti tution Not Available Not Available Not Available Vitals Date Recorded Body height Body mass index (BMI) Body weight Provider Name and Address Organization Details Last Updated DateTime 05/13/2023 160.02 cm 27.6 kg/m2 53048.41 g Renetta Verduzco [facility] 05/13/2023 08:56:12 Date Recorded Body height Body mass index (BMI) Body weight Provider Name and Address Organization Details Last Updated DateTime 05/18/2024 160.02 cm 28.3 kg/m2 80752.78 g Ravi Cisset [facility] 05/18/2024 13:11:48 Date Recorded Body height Body mass index (BMI) Body weight Provider Name and Address Organization Details Last Updated DateTime 02/04/2023 160.02 cm 27.3 kg/m2 56572.22 g Cassie Salcedo [facility] 02/04/2023 09:47:47 Social History Question Answer Notes LastModified by Organizat ion Details LastModified Time Tobacco Smoking Status Never Smoker [facility] 02/04/2023 09:49:21 What Was The Date Of Your Most Recent Tobacco Screening? 05/18/2024 [email or web address] Information not available 05/18/2024 What Is Your Relationship Status? [email or web address] Information not available 02/04/2023 Sex: Unknown Functional Status Question Answer Note LastModified by Organizat ion Details LastModified Time Do you use any illicit or recreational drugs? No [email or web address] Information not available 02/04/2023 Do you or have you ever used any other forms of tobacco or nicotine? No [email or web address] Information not available 02/04/2023 What is your level of alcohol consumption? None [email or web address] Information not available 02/04/2023 Are you currently employed? No [email or web address] Information not available 02/04/2023 Mental Status None recorded. Family History Relationship Description Onset Age of this Age Resolved Age Notes LastModified by Organization Details LastModified Time Father Family history of malignant neoplasm [email or web address] Not available 2022 09:49:02 Brother Kidney disease [email or web address] Not available 2022 09:49:09 Medical History Condition Response False Teeth Y Arthritis Y Hypertension Y Chronic Obstructive Pulmonary Disease Y High Cholesterol Y Gynecological HistoryNo gynecological history recorded. Obstetrics History GPAL:G 0 P 0 0 0 0 Past Encounters Encounter ID Performer Location Encounter Start Date Encounter Closed Date Diagnosis/Indication Diagnosis SNOMED-CT Code Diagnosis ICD10 Code Diagnosis IMO Codes Diagnosis Note [id number] BALDO CAMPBELL PA-C [facility] EX[facility]ENDED [facility] [address] [facility] [address] [place] [address] 02/04/2023 09:21:26 02/05/2023 04:10:20 Microscopic hematuria 986836656 R31.29 Per AUA guidelines given age and smoking history high risk, needs CT urogram and cystoscopy for further evaluation .will schedule [id number] GOLD PARKINSON JR, MD SURGERY SCHEDULE [address] [place] [address] 02/08/2023 11:42:01 02/08/2023 11:44:11 Microscopic hematuria 347711851 R31.29 [id number] SARAH GALDAMEZKamla CHELSIEKostaLING CLAY, DO DAK MILLEN [address] [place] [address] 04/08/2023 07:31:12 04/11/2023 12:44:24 Actinic keratosis 955340980 L57.0 [id number] GOLD PARKINSON JR, MD [facility] [address] [place] [address] 05/13/2023 08:47:45 05/13/2023 09:11:22 Microscopic hematuria 205627772 R31.29 [id number] BALDO CAMPBELL PA-C [facility]ED [facility] [address] [place] [address] 05/18/2024 10:37:42 05/19/2024 07:22:18 Microscopic hematuria 611025754 R31.29 Asymptomat ic. No axel hematuria. No microhemat uria detected today. Health Concerns Section Related Observation LastModified by Organization Detai ls LastModified Time None Recorded Concern Status LastModified by Organization Details LastModified Time None Recorded Advance Directives Directive None Recorded Payers Insurance Date Sequence Insurance Name Policy Number Policy Milton Covered Member ID Milton Member ID Guarantor Name 05/20/2024 2 [employer] [place] [employer] (MEDICARE SUPPLEMENT) Marylou Jessica Parra Marylou Parra 05/20/2024 2 [employer] - PLAN G (MEDICARE SUPPLEMENT) Marylou Parra [id number] Marylou Parra 05/20/2024 1 [place] Marylou M Sukumar [id number] Marylou M Sukumar Notes Date Note Type Note Provider Name and Address Organization Details Recorded Time 02/04/2023 text/html Ms. Parra is a 72y/o F who presents today as a new patient referral from [facility] for hematuria. Reviewed PCP OV 01/31/23 with PCPPreviously seen for LBP and urinary frequency. UA showed trace hematuria but no evidence of infection. Urine culture negative.told trace hematuria in urine at [facility] in the summer.Feeling better on 01/31/23.No hx JOSHUA or stonesUA 01/31/23 shows hemolytzed trace blood on dip TODAY - 02/04/23Pt states never with axel hematuria.[facility] multiple [facility] and with [facility]CP but never axel hematuria.No dysuria.No flank pain.some frequency and urgency, but her usual. History smoking = smoked from age 16 to age 58, smoked 1 PPD, 42 pack years. BALDO CAMPBELL PA-C [address] [place] [address], [address], [facility] 02/04/2023 15:11:18 02/08/2023 text/html Ms. Parra is a 72y/o F who presents today as a new patient referral from [facility] for hematuria. Reviewed PCP OV 01/31/23 with PCPPreviously seen for LBP and urinary frequency. UA showed trace hematuria but no evidence of infection. Urine culture negative.told trace hematuria in urine at [facility] summer.Feeling better on 01/31/23.No hx JOSHUA or stonesUA 01/31/23 shows hemolytzed trace blood on dip TODAY - 02/04/23Pt states never with axel hematuria.Has had multiple episodes of [facility]hemat[facility] and with PCP but never axel hematuria.No dysuria.No flank pain.some frequency and urgency, but her usual. History smoking = smoked from age 16 to age 58, smoked 1 PPD, 42 pack years. GOLD PARKINSON JR, MD [address] [place] [address], [address], [facility] 02/08/2023 13:34:07 04/08/2023 text/html ROS as noted in the HPI SARAH PRESCOTT DO [address] [place] [address], [address], [facility] 04/08/2023 17:10:29 05/13/2023 text/html Patient is in today for follow-up of microscopic hematuria. She did undergo cystoscopy and CT scan imaging January 2023. This was negative from urologic standpoint. Patient denies gross hematuria. She denies any urinary tract infections. She has been worked up by gynecologic oncology for abnormal appearing uterus. This is led to discovery of lung mass which is currently being worked up. GOLD PARKINSON JR, MD [address] [place], [address], [facility] 05/19/2023 19:12:02 05/18/2024 text/html Ms. Parra is a 73 y/o F who presents today for annual f/u of microhematuria She did undergo cystoscopy and CT scan imaging January 2023. This was negative from urologic standpoint. Patient denies gross hematuria. She denies any urinary tract infections. No bothersome urinary symptoms She has been worked up by gynecologic oncology for abnormal appearing uterus, no concerns there. This is led to discovery of lung mass which is currently being worked up. ended up with left upper lobe of lung removed d/t cancer of lung. BALDO CAMPBELL PA-C [address] [place], [address], [facility] 05/18/2024 15:12:16 OBGyn Episode No OBEpisode recorded.
--- OUTSIDE RECORDS SUMMARY | 2025-04-16 10:40 | XMS_ITS | Encounter Summary ---
[facility] Address [address] [place] [address] Care Team Providers Care Bitumen Plant Operator Name Role Phone Ke Mejia MD Primary Care Provider [phone] Reason for Visit * Reason Onset Date Comments DR PEDRO - CLINICAL 04/09/2025 Encounter Details Date Type Department Care Team (Late st Contact Info) Description 04/09/2025 Telephone [facility] HEMATOLOGY & ONCOLOGY [address] [address] Emilee Pedro MD [address] [place] [address] DR PEDRO - CLINICAL Social History Tobacco Use Types Packs/Day Years [...] or training? Not on file Preferred Language Saudi Arabian 07/13/2023 PHQ-2 Answer Date Recorded Patient Health [...] on file documented as of this encounter Miscellaneous Notes * Telephone Encounter - Clary Camp RN - 04/09/2025 4:08 PM EST Returned patient phone call. Patient asking what the difference between the pet scan and biopsy is and purpose of those. RN explained what each test was and purpose for both. Patient satisfied with explanation, stated understanding and had no further questions. * Telephone Encounter - Kesha Feliz RegSched Rep - 04/09/2025 2:57 PM EST Caller: Marylou Patino Relationship: Self Best call back number: [phone] What is the best time to reach you: ANYTIME Who are you requesting to speak with (clinical staff, provider, specific staff member): CLINICAL What was the call regarding: PT IS REQUESTING A CALL BACK WANTING TO ASK IF A PET SCAN AND A BIOPSYWOULD SHOW THE SAME RESULTS IF SHE HAD CANCER. documented in this encounter Plan of Treatment Upcoming Encounters Date Type Department Care Team (Late st Contact Info) Description 05/03/2025 2:45 PM EST Appointment [facility] CT AT [address] [place] [address] 05/03/2025 3:30 PM EST Pre-Admission Testing [facility] PREADMISSION T [address] [place] [address] 05/07/2025 11:12 AM EST Hospital Encounter [facility] ENDO SUITES [address] [place] [address] Omega Jones, DO [address] [place] [address] 05/07/2025 11:12 AM EST - 05/07/2025 12:26 PM EST Surgery [facility] SU[facility]ES [address] [place] [address] Omega Jones, DO [address] [place] [address] BRONCHOSCOPY NAVIGATION WITH ION ROBOT [[id number] (CPT )] 06/02/2025 1:30 PM EST Appointment [facility] [place] [address] [place] [address] 06/02/2025 2:30 PM EST Appointment [facility] [place] [address] [place] [address] 06/09/2025 3:15 PM EST Office Visit [facility] HEMATOLOGY & ONCOLOGY [address] [facility] [address] [place] [address] Emilee Pedro MD [address] [facility] [address] [place] [address] 06/30/2025 1:00 PM EST Office Visit [facility] PULMONARY & CRITICAL CARE MEDICINE [address] [place] [address] Omega Jones DO [address] [place] [address] Scheduled Procedures Name Priority Associated Diagnoses Date/Ti me BRONCHOSCOPY WITH ION ROBOT Pulmonary nodule 05/07/2025 11:12 AM EST documented as of this encounter Visit Diagnoses Not on filedocumented in this encounter Care Teams Bitumen Plant Operator Relationship Specialty Start Date End Date Ke Mejia MD Replaced by [facility] [place] [phone] PCP - General Family Medicine 11/17/24 documented as of this encounter
--- OUTSIDE RECORDS SUMMARY | 2025-04-16 10:40 | XMS_ITS | Clinical Summary ---
Author Organization [facility] Address [address] [place] [address] Care Team Providers Care Matzo Forming Machine Operator Name Role Phone Ke Mejia MD Primary Care Provider +1- [phone] Allergies No known active allergies Medications lisinopril-hydr ochlorothiazide (PRINZIDE,ZESTO RETIC) 10-12.5 MG per tablet Take 1 tablet by mouth Daily. 7 Active atorvastatin (LIPITOR) 20 MG tablet Take 1 tablet by mouth Every Night. 7 Active aspirin 81 MG tablet Take 1 tablet by mouth Daily. Active potassium chloride 10 MEQ CR tablet Take 1 tablet by mouth Daily. 4 Active albuterol sulfate HFA 108 (90 Base) MCG/ACT inhalerIndicati ons:Shortness of breath Inhale 2 puffs Every 4 (Four) Hours As Needed for Wheezing. 18 g 11 4 Active vitamin C (ASCORBIC ACID) 250 MG tablet Take 1 tablet by mouth Daily. Active formoterol (PERFOROMIST) 20 MCG/2ML nebulizer solutionIndicat ions:Chronic obstructive pulmonary disease, unspecified COPD type Take 2 mL by nebulization 2 (Two) Times a Day. 120 mL 3 5 Active miSOPROStol (CYTOTEC) 200 MCG tabletIndicatio ns:Cervical stenosis (uterine cervix),Thicken ed endometrium Insert 1 tablet in the vagina the night before your D&C 1 tablet 5 Active tiotropium bromide-olodate rol (STIOLTO RESPIMAT) 2.5-2.5 MCG/ACT aerosol solution inhalerIndicati ons:Chronic obstructive pulmonary disease, unspecified COPD type Inhale 2 puffs Daily. 2 each Active Active Problems Problem Noted Date Diagnosed Date COPD 06/01/2024 Exertional dyspnea 06/01/2024 Former smoker 12/23/2023 Seasonal allergies 06/28/2023 Malignant neoplasm of upper lobe of left lung Cancer Staging:Clinical:Stage IIB(cT2, cN1, cM0) - Signed by Emilee Pedro MD on 06/11/2023 Pathologic:Stage IIA(pT2b, pN0, cM0) - Signed by Emilee Pedro MD on 08/13/2023 LLL pulmonary nodule 05/14/2023 PMB (postmenopausal bleeding) 03/12/2023 Thickened endometrium 03/12/2023 Cervical stenosis (uterine cervix) 03/12/2023 Resolved Problems Problem Noted Date Diagnosed Date Resolved Date Lung cancer 07/12/2023 12/23/2023 Encounters Date Type Department Care Team Description 04/13/2025 Prep for Surgery [facility] ORDERS ONLY [address] [place] [address] Omega Jones, LLL pulmonary nodule (Primary Dx) 04/09/2025 Patient Outreach [facility] HEMATOLOGY & ONCOLOGY [address] [address] Jackelin Woodward RN 04/09/2025 Telephone [facility] & [facility] [address] [facility] [address] JACKSON - CLINICAL 04/07/2025 2:00 PM EST Office Visit [facility] HEMATOLOGY & ONCOLOGY [address] [address] Emilee Pedro MD Malignant neoplasm of upper lobe of left lung (Primary Dx); Unilateral nasal obstruction alternating between nares 04/07/2025 Travel 03/31/2025 12:35 PM EST - 03/31/2025 11:59 PM EST Hospital Encounter [facility] [address] [place] [address] Emilee Pedro MD Malignant neoplasm of upper lobe of left lung Discharge Disposition: Home or Self Care 03/31/2025 Travel from Last 3 Months Immunizations Immunization Administration Dates Next Due Fluzone High-Dose 65+YRS 04/01/2024,02/22/2021 Fluzone High-Dose 65+yrs 02/01/2023 Pneumococcal Conjugate 20-Va lent (PCV20) 06/01/2024(Deferred: Patient Refused) Family History Medical History Relation Name Comments Cirrhosis Brother 1 Lung cancer Brother 2 Emphysema Father Jr Lung cancer Father Jr Ovarian cancer Maternal Grandmother Emphysema Mother Ed Hypertension Mother Ed Heart disease Sister 1 Kidney disease Sister 2 Relation Name Status Comments Brother 1 Brother 2 Father Jr Maternal Grandmother Mother Ed Sister 1 Sister 2 Alive Social History Tobacco Use Types Packs/Day Years [...] or training? 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 PREADMISSION T [address] [place] [address] 05/07/2025 11:12 AM EST Hospital Encounter [facility] ENDO SUITES [address] [place] [address] Omega Jones, DO [address] [place] [address] 05/07/2025 11:12 AM EST - 05/07/2025 12:26 PM EST Surgery [facility] ENDO SUITES [address] [place] [address] Omega Jones, DO [address] [place] [address] BRONCHOSCOPY NAVIGATION WITH ION ROBOT [[id number] (CPT )] 06/02/2025 1:30 PM EST Appointment [facility] [place] [address] [place] [address] 06/02/2025 2:30 PM EST Appointment [facility] [place] [address] [place] [address] 06/09/2025 3:15 PM EST Office Visit [facility] HEMATOLOGY & ONCOLOGY 1700 [facility] [address] [place] [address] Emilee Pedro MD 1700 [facility] [address] [place] [address] 06/30/2025 1:00 PM EST Office Visit [facility] PULMONARY & CRITICAL CARE MEDICINE 2400 [facility] [place] [place] [address] Omega Jones, DO [address] [place] [address] Scheduled Procedures Name Priority Associated Diagnoses Date/Ti me BRONCHOSCOPY WITH ION ROBOT Pulmonary nodule 05/07/2025 11:12 AM EST Health Maintenance Due Date Last Done Comments DXA SCAN 1948 TDAP/TD VACCINES (1 - Tdap) 07/08/1967 COLOGUARD 1993 COLON CANCER SCREENING 5 YEAR SIGMOIDOSCOPY 1993 COLONOSCOPY 1993 [address] CANCER SCREENING 1993 CT COLONOGRAPHY 1993 FECAL OCCULT BLOOD TEST 1993 FIT Testing (1 year) 1993 ZOSTER VACCINE (1 of 2) 1998 ANNUAL WELLNESS VISIT 01/28/2017 HEPATITIS C SCREENING 01/28/2017 RSV Vaccine - Adults (1 - 1-dose 75+ series) 07/08/2023 COVID-19 Vaccine ( season) 2024 03/31/2021, 07/02/2020, 06/11/2020 Pneumococcal Vaccine 50+ (1 of 2 - PCV) 06/01/2025 Postponed from 07/08/1967 (Patient Refused) MAMMOGRAM Discontinued 03/10/2024, 02/27, 01/29/2023, Additional history exists INFLUENZA VACCINE Completed 03/08/2025, , 04/01/2024, Additional history exists LUNG CANCER SCREENING Discontinued 03/31/2025 , 12/02/2024, 08/25/2024, Additional history exists Medical Devices Implanted Type Area Picker Tender Helper Device Identifier Shelf Expiration Date Model / Serial / Lot Reload Stplr Sureform 45 Davinci/X/Xi 6row 2.5 Wht 1p/U - [id number] Implanted:Qty: 3 on 07/12/2023 by Ronald Montalvo MD at [facility] Implant Left: Lung INTUITIVE SURGICAL 07/27/2024 [id number] / / [id number] Reload Stplr Sureform 45 Davinci/X/Xi 6row 4.3 Grn 1p/U - [id number] Implanted:Qty: 1 on 07/12/2023 by Ronald Montalvo MD at [facility] Implant Left: Lung INTUITIVE SURGICAL 05/29/2024 [id number] / / [id number] Reload Stplr Sureform 45 Davinci/X/Xi 6row 3.5 Ollie 1p/U - [id number] Implanted:Qty: 1 on 07/12/2023 by Ronald Montalvo MD at [facility] Implant Left: Lung INTUITIVE SURGICAL 03/28/2024 [id number] / / [id number] Reload Stplr Endowrist 30 Davinci/X/Xi 6row 2.5 Wht 1p/U - [id number] Implanted:Qty: 1 on 07/12/2023 by Ronald Montalvo MD at [facility] Implant Left: Lung INTUITIVE SURGICAL 11/26/2024 [id number] / / [id number] Procedures Procedure Name Priority Date/Time Associated Diagnosis Comments CT ABDOMEN PELVIS W CONTRAST Routine 03/31/2025 12:58 PM EST Malignant neoplasm of upper lobe of left lung CT CHEST W CONTRAST Routine 03/31/2025 1 2:58 PM EST Malignant neoplasm of upper lobe of left lung SCANNED PATHOLOGY 03/29/2025 from Last 3 Months Results * CT Abdomen Pelvis With Contrast [...] MD 04/05/2025 12:45 PM EST Workstation ID: [id number] Narrative 04/05/2025 12:[address] CHEST [...] MD 04/05/2025 12:45 PM EST Workstation ID: [id number] Emilee Pedro MD IMG CT ORDERABLES Final [...] MD 04/05/2025 12:45 PM EST Workstation ID: [id number] Narrative 04/05/2025 12:[address] CHEST [...] Signed: Samuel Fair MD 04/05/2025 12:45 PM [facility] Workstation ID: [id number] Emilee Pedro MD IMG CT ORDERABLES Final Result * SCANNED PATHOLOGY (03/29/2025) [facility] Onbase PATHOLOGY/CYTOLOGY ORDERABLES Final Result from Last 3 Months Insurance MEDICARE A & B Member Subscriber Plan / Payer ( fective 2013-Present) Name:SukumarMarylou Member ID:[id number] Relation to Subscriber:Self Name:Marylou Patino Subscriber ID:[id number] Payer ID:[id number] Group ID:Not on file Type:Not on file Address: [facility] [id number] [place] [id number] [employer] Advance Directives * CPR (Attempt to Resuscitate) (Latest Code Status on File) Date Activated Date Inactivated Comments 07/12/2023 9:13 PM 07/15/2023 6:58 PM Question Answer Comments Code Status (Patient has no pulse and is not breathing): CPR (Attempt to Resuscitate) Medical Interventions (Patie nt has pulse or is breathing): Full Support Care Teams Matzo Forming Machine Operator Relationship Specialty Start Date End Date Ke Mejia MD [address] [address] PCP - General Family Medicine 11/17/24
--- OUTSIDE RECORDS SUMMARY | 2025-04-16 10:40 | XMS_ITS | Encounter Summary ---
[facility] Organization [facility] Address [address] [place] [address] Care Team Providers Care Welder Machine Operator Name Role Phone Ke Mejia MD Primary Care Provider +1- [phone] Encounter Details Date Type Department Care Team (Late st Contact Info) Description 12/14/2024 Results Follow-Up [facility] HEMATOLOGY & ONCOLOGY 1700 [facility] [address] [place] [address] Emilee Pedro MD 1700 [facility] [address] [place] [id number] Social History Tobacco Use Types Packs/Day Years [...] or training? Not on file Preferred Language Salvadorean 07/13/2023 PHQ-2 Answer Date Recorded Patient Health [...] Info) Description 05/03/2025 2:45 PM EST Appointment [facility] AT [address] [place] [address] 05/03/2025 3:30 PM EST Pre-Admission Testing [facility] PREAD[facility] T [address] [place] [address] 05/07/2025 11:12 AM EST Hospital Encounter [facility] ENDO SUITES [address] [place] [address] Omega Jones, DO [address] [place] [address] 05/07/2025 11:12 AM EST - 05/07/2025 12:26 PM EST Surgery [facility] ENDO SUITES [address] [place] [address] Omega Jones, DO [address] [place] [address] BRONCHOSCOPY NAVIGATION WITH ION ROBOT [[id number] (CPT )] 06/02/2025 1:30 PM EST Appointment [facility] [place] [address] [place] [address] 06/02/2025 2:30 PM EST Appointment [facility] [place] [address] [place] [address] 06/09/2025 3:15 PM EST Office Visit [facility] HEMATOLOGY & ONCOLOGY [address] [facility] [address] [place] [address] Emilee Pedro MD 1700 [facility] [address] [place] [address] 06/30/2025 1:00 PM EST Office Visit [facility] PULMONARY & CRITICAL CARE MEDICINE 2400 [place] [address] Omega Jones DO [address] [place] [address] Scheduled Procedures Name Priority Associated Diagnoses Date/Ti me BRONCHOSCOPY WITH ION ROBOT Pulmonary nodule 05/07/2025 11:12 AM EST documented as of this encounter Visit Diagnoses Not on filedocumented in this encounter Care Teams Welder Machine Operator Relationship Specialty Start Date End Date Ke Mejia MD [facility]0 [place] [phone] PCP - General Family Medicine 11/17/24 documented as of this encounter
--- OUTSIDE RECORDS SUMMARY | 2025-04-16 10:40 | XMS_ITS | Encounter Summary ---
[facility] Address [address] [place] [address] Care Team Providers Care Inspector Subassemblies Name Role Phone Ke Mejia MD Primary Care Provider +1- [phone] Encounter Details Date Type Department Care Team (Late st Contact Info) Description 11/06/2024 Results Follow-Up [facility] LABORATORY [address] [place] [phone] Antonio Farrell MD 1700 [facility] [address] [place] [address] Social History Tobacco Use Types Packs/Day Years [...] or training? Not on file Preferred Language Kazakh 07/13/2023 PHQ-2 Answer Date Recorded Patient Health [...] Info) Description 05/03/2025 2:45 PM EST Appointment [facility] AT [address] [place] [address] 05/03/2025 3:30 PM EST Pre-Admission Testing [facility] PREADMISSION T [address] [place] [address] 05/07/2025 11:12 AM EST Hospital Encounter [facility] ENDO SUITES [address] [place] [address] Omega Jones, DO [address] [place] [address] 05/07/2025 11:12 AM EST - 05/07/2025 12:26 PM EST Surgery [facility] ENDO SUITES [address] [place] [address] Omega Jones, DO [address] [place] [address] BRONCHOSCOPY NAVIGATION WITH ION ROBOT [[id number] (CPT )] 06/02/2025 1:30 PM EST Appointment [facility] [place] [address] [facility] [address] [place] [address] 06/02/2025 2:30 PM EST Appointment [facility] [place] [address] [facility] [address] [place] [address] 06/09/2025 3:15 PM EST Office Visit [facility] HEMATOLOGY & ONCOLOGY 1700 [facility] [address] [place] [address] Emilee Pedro MD 1700 [facility] [address] [place] [address] 06/30/2025 1:00 PM EST Office Visit [facility] PULMONARY & CRITICAL CARE MEDICINE [address] [place] [address] Omega Jones, [address] [place] [address] Scheduled Procedures Name Priority Associated Diagnoses Date/Ti me BRONCHOSCOPY WITH ION ROBOT Pulmonary nodule 05/07/2025 11:12 AM EST documented as of this encounter Visit Diagnoses Not on filedocumented in this encounter Care Teams Inspector Subassemblies Relationship Specialty Start Date End Date Ke Mejia MD [facility] [place] [phone] PCP - General Family Medicine 11/17/24 documented as of this encounter
--- OUTSIDE RECORDS SUMMARY | 2025-04-16 10:41 | XMS_ITS | Encounter Summary ---
Author Organization [facility] Address [address] [place] [address] Care Team Providers Care Newsperson Name Role Phone Ke Mejia MD Primary Care Provider +1- [phone] Encounter Details Date Type Department Care Team (Latest Contact Info) Description 03/31/2025 Travel Social History Tobacco Use Types Packs/Day Years [...] or training? Not on file Preferred Language Romansh 07/13/2023 PHQ-2 Answer Date Recorded Patient Health [...] Info) Description 05/03/2025 2:45 PM EST Appointment [facility] AT [address] [place] [address] 05/03/2025 3:30 PM EST Pre-Admission Testing [facility] PREADMISSION T [address] [place] [address] 05/07/2025 11:12 AM EST Hospital Encounter [facility] ENDO SUITES [address] [place] [address] Omega Jones, DO [address]00 [place] [address] 05/07/2025 11:12 AM EST - 05/07/2025 12:26 PM EST Surgery [facility] ENDO SUITES [address] [place] [address] Omega Jones, DO [address] [place] [address] BRONCHOSCOPY NAVIGATION WITH ION ROBOT [[id number] (CPT )] 06/02/2025 1:30 PM EST Appointment [facility] [place] [address] [facility] [address] [address] [place] [address] 06/02/2025 2:30 PM EST Appointment [facility] [place] [address] [facility] [address] [place] [address] 06/09/2025 3:15 PM EST Office Visit [facility] HEMATOLOGY & ONCOLOGY 17[address] [facility] [address] [place] [address] Emilee Pedro MD [address] [facility] [address] [place] [address] 06/30/2025 1:00 PM EST Office Visit [facility] PULMONARY & CRITICAL CARE MEDICINE 2400 [facility] [address] Omega Jones DO [address] [place] [address] Scheduled Procedures Name Priority Associated Diagnoses Date/Ti me BRONCHOSCOPY WITH ION ROBOT Pulmonary nodule 05/07/2025 11:12 AM EST documented as of this encounter Visit Diagnoses Not on filedocumented in this encounter Care Teams Newsperson Relationship Specialty Start Date End Date Ke Mejia MD [facility] [place] [phone] PCP - General Family Medicine 11/17/24 documented as of this encounter
--- OUTSIDE RECORDS SUMMARY | 2025-04-16 10:41 | XMS_ITS | Encounter Summary ---
Author Organization [facility] Address [address] [place] [address] Care Team Providers Care Power Generation Turbine Room Operator Name Role Phone Ke Mejia MD Primary Care Provider +1- [phone] Encounter Details Date Type Department Care Team (Latest Contact Info) Description 04/07/2025 Travel Social History Tobacco Use Types Packs/Day [...] or training? Not on file Preferred Language Turkmen 07/13/2023 PHQ-2 Answer Date Recorded Patient Health [...] Info) Description 05/03/2025 2:45 PM EST Appointment [facility] AT [address] [place] [address] 05/03/2025 3:30 PM EST Pre-Admission Testing [facility] PREADMISSION T [address] [place] [address] 05/07/2025 11:12 AM EST Hospital Encounter [facility] ENDO SUITES [address] [place] [address] Omega Jones, DO [address] [place] [address] 05/07/2025 11:12 AM EST - 05/07/2025 12:26 PM EST Surgery [facility] ENDO SUITES [address] [place] [address] Omega Jones, DO [address] [place] [address] BRONCHOSCOPY NAVIGATION WITH ION ROBOT [[id number] (CPT )] 06/02/2025 1:30 PM EST Appointment [facility] [place] [address] [facility] [address] [place] [address] 06/02/2025 2:30 PM EST Appointment [facility] [place] [address] [facility] [address] [place] [address] 06/09/2025 3:15 PM EST Office Visit [facility] H[facility]OLOG[facility] & [facility]COL[facility]Y [facility] [facility] [address] [place] [address] Emilee Pedro MD 1700 [facility] [address] [place] [address] 06/30/2025 1:00 PM EST Office Visit [facility] PULMONARY & CRITICAL CARE MEDICINE 2400 [facility] [place] [address] Omega Jones DO [address]00 [place] [address] Scheduled Procedures Name Priority Associated Diagnoses Date/Ti me BRONCHOSCOPY WITH ION ROBOT Pulmonary nodule 05/07/2025 11:12 AM EST documented as of this encounter Visit Diagnoses Not on filedocumented in this encounter Care Teams Power Generation Turbine Room Operator Relationship Specialty Start Date End Date Ke Mejia MD [facility] [place] [id number] PCP - General Family Medicine 11/17/24 documented as of this encounter
--- OUTSIDE RECORDS SUMMARY | 2025-04-16 10:41 | XMS_ITS | Encounter Summary ---
Author Organization [facility] Address [address] [place] [address] Care Team Providers Care District Adviser Name Role Phone Ke Mejia MD Primary Care Provider +1- [phone] Encounter Details Date Type Department Care Team (Late st Contact Info) Description 04/09/2025 Patient Outreach [facility] HEMATOLOGY & ONCOLOGY 1700 [facility] [address] [place] [address] Jackelin Woodward, RN Social History Tobacco Use Types Packs/Day Years [...] or training? Not on file Preferred Language Bahamian 07/13/2023 PHQ-2 Answer Date Recorded Patient Health [...] Info) Description 05/03/2025 2:45 PM EST Appointment [facility] AT [address] [place] [address] 05/03/2025 3:30 PM EST Pre-Admission Testing [facility] PREADMISSION T [address] [place] [address] 05/07/2025 11:12 AM EST Hospital Encounter [facility] ENDO SUITES [address] [place] [address] Omega Jones, DO [address] [place] [address] 05/07/2025 11:12 AM EST - 05/07/2025 12:26 PM EST Surgery [facility] ENDO SUITES [address] [place] [address] Omega Jones, DO [address] [place] [address] BRONCHOSCOPY NAVIGATION WITH ION ROBOT [[id number] (CPT )] 06/02/2025 1:30 PM EST Appointment [facility] [place] [address] [facility] [place] [address] 06/02/2025 2:30 PM EST Appointment [facility] [place] [address] [facility] [address] [place] [address] 06/09/2025 3:15 PM EST Office Visit [facility] HEMATOLOGY & ONCOLOGY 1700 [facility] [address] [place] [address] Emilee Pedro MD 1700 [facility] [address] [place] [address] 06/30/2025 1:00 PM EST Office Visit [facility] PULMONARY & CRITICAL CARE MEDICINE [address]00 [place] [address] Omega Jones DO [address] [place] [address] Scheduled Procedures Name Priority Associated Diagnoses Date/Ti me BRONCHOSCOPY WITH ION ROBOT Pulmonary nodule 05/07/2025 11:12 AM EST documented as of this encounter Visit Diagnoses Not on filedocumented in this encounter Care Teams District Adviser Relationship Specialty Start Date End Date Ke Mejia MD [address] [place] [address] PCP - General Family Medicine 11/17/24 documented as of this encounter
== END 2025-04-15 23:59 | disposition home or self-care (01) ==
LOC: LAB.DROPOF 04-16 10:36
PROVIDERS: PCP Family Medicine; Visit Provider Family Medicine
DX: C34.12 Malignant neoplasm of upper lobe, left bronchus or lung (principal); F51.4 Sleep terrors [night terrors]; F41.9 Anxiety disorder, unspecified; E78.5 Hyperlipidemia, unspecified; I10 Essential (primary) hypertension
CPT/HCPCS: 80053; 80061; 84439; 84443; 85025